=== PATIENT | female | born 1950 | race Caucasian/White ===

== ENCOUNTER → 2016-09-08 | Outpatient (CLI) | payer MEDICAID ==
--- NOTE | 2016-09-09 06:55 | US ---
EXAMINATION TYPE: US st tissue head/neck DATE OF EXAM: 09/08/2016 4:33 PM COMPARISON: EXAMINATION TYPE: US st tissue head/neck DATE OF EXAM: 09/08/2016 4:33 PM COMPARISON: Thyroid ultrasound June 05, 2014 CLINICAL HISTORY: patient has history of thyroid cancer and thyroidectomy. Patient has pain right sub mandibular area. . Technique: Targeted ultrasound of the area of patient's pain right submandibular region is performed. TECHNOLOGIST IMPRESSION: scanned area of concern, where patient has pain, right submandibular area a s well as left submandibular area for comparison. In patient's area of pain there is a chain of nodes , largest measuring 1.3 x 0.6 x 1.1 cm. No other abnormality noted. Scanning of right submandibular region at site of pain shows oval well-circumscribed heterogeneous hy poechoic lesions could reflect reactive lymph nodes. There is loss of normal central fatty hilum or h yperechoic area. Finding could reflect product of inflammatory change given patient's symptoms. Other etiologies are not excluded. If symptoms do not resolve further investigation with contrast neck CT would be advised. No worrisome fluid collection is seen. IMPRESSION: As above.
== END | disposition home or self-care (01) ==
LOC: RADUSWWP 15:58
PROVIDERS: ATTEND Internal Medicine Endocrinology, Diabetes & Metabolism
DX: C73 Malignant neoplasm of thyroid gland (principal); E89.0 Postprocedural hypothyroidism
CPT/HCPCS: 76536

== ENCOUNTER → 2016-09-09 | Outpatient (CLI) | payer MEDICAID ==
[2016-09-09 16:24] VITALS: BP 150/72; PULSE 69; TEMP 97.9; BMI 30.2
--- NOTE | 2016-09-20 19:38 | P.PN ---
Progress Note - Text DATE OF SERVICE: 09/09/2016 CHIEF COMPLAINT: Follow-up sleeve gastrectomy. HISTORY OF PRESENT ILLNESS: Monica Fowler is a 66-year-old female who is status post sleeve gastrectomy on July 2013. She had initially weighed 234 pounds. Her body mass index for a 5-foot, 1 inch frame was 44.2. Today she comes in weighing 162 pounds. She has actually gained 12 pounds over the last 2 years. [place] body weight for her height is 131 pounds. Percent excess weight loss is 70%. Body mass index is reduced from 43.6 down to 30.2. She reports troubles with her skin with chronic infections. Despite topical treatments as well as corn starch and using local therapies, her symptoms continue. She reports that her appetite is unchanged. No reports of active gastroesophageal reflux disease as she continues to take antacids. She is taking Aleve including ibuprofen. She states Tylenol does not work. She also reports chronic infections of panniculitis along the umbilicus. Now she presents for further evaluation and management. She is also concerned for her overall weight gain. Separately, she has history of thyroid cancer, which is now in remission. She follows up with her automotive product specialist regularly. PAST MEDICAL HISTORY: 1. Gastroesophageal reflux disease. 2. Severe postop nausea and vomiting. 3. Morbid obesity. 4. Thyroid goiter. 5. Hyperthyroidism. PAST SURGICAL HISTORY: 1. Hysterectomy. 2. EGD. 3. Colonoscopy. 4. Umbilical hernia repair. 5. Tonsillectomy. 6. Adenoidectomy. 7. Laparoscopic sleeve gastrectomy. 8. Status post thyroidectomy. MEDICATIONS: 1. Vitamin E. 2. Prilosec. 3. Multivitamin. 4. Motrin. 5. Vitamin B12. 6. CoQ10. 7. Vitamin D3. 8. [place]. 9. Levothyroxine. ALLERGIES: ADHESIVE. SOCIAL HISTORY: She is . Lifelong nontobacco user. FAMILY HISTORY: Significant for morbid obesity including diabetes. REVIEW OF SYSTEMS: CONSTITUTIONAL: Highest weight of 234 pounds. Initial body mass index is 44.2. She has gained approximately 12 pounds in 2 years. Percent excess weight loss is down from 80% to 70%. She is only 31 pounds overweight. Body mass index reduced from 43.6 down to 30.2. ENDOCRINE: History of thyroid goiter and thyroid cancer. She is status post resection now in remission after radiation. She is now on Synthroid. GASTROINTESTINAL: Gastroesophageal reflux disease controlled with omeprazole. No reports of constipation or dysphagia. MUSCULOSKELETAL: Reports lower back pain. HEENT: Denies troubles with vision or hearing. RESPIRATORY: No reports of dyspnea on exertion. No reports of obstructive sleep apnea. CARDIAC: No reports of recent chest pain or heart attack. NEURO: No reports of stroke or seizure disorder. PSYCH: No reports of depression or suicidal ideation. HEMATOLOGIC: No reports of DVTs or pulmonary emboli. PHYSICAL EXAM: VITAL SIGNS: 97.9, 69, 150/72; 5 feet 1-1/2 inches, 162 pounds. Body mass index 30.2. ABDOMEN: Moderate-sized pannus over pubis by 7 cm. Hyperemia also noted throughout the skin fold of the pannus. Redundant skin identified. Weight of pannus of at least between 10 and 15 pounds. GENERAL: Well-developed, pleasant female in no acute distress. HEENT: No scleral icterus. Extraocular movements grossly intact. Moist buccal mucosa. NECK: Supple; however, moderate sized thyroid goiter. No discrete thyroid nodules palpated. No lymphadenopathy. CHEST: Nonlabored respirations. Equal bilateral respirations. CARDIOVASCULAR: Regular rate and rhythm. MUSCULOSKELETAL: No clubbing, cyanosis or edema. NEURO: No focal or lateralizing signs. PSYCH: Appropriate affect. Alert and oriented to person, place and time. Labs are pending. Previous labs demonstrate TSH level suppressed at 0.015, PTH level pending. Cholesterol was 60. LDL was elevated at 174. HDL was elevated at 69. Hemoglobin was normal at 13.3. ASSESSMENT: 1. Morbid obesity due to excess calories. 2. Body mass index reduced from 44.2 down to 30.2, obesity. 3. Status post sleeve gastrectomy. 4. History of thyroid cancer in remission. 5. Previous history of thyroid goiter secondary to thyroid cancer, resolved. 6. Secondary hyperparathyroidism. 7. Recurrent panniculitis. 8. Osteoarthritis of the lower back. 9. Osteoarthritis of the joints. 10. Dietary surveillance and counseling. PLAN: 1. She has fair amount of weight gain in the last 2 years. I reviewed with her that the average weight gain following bariatric procedure may be about 25 pounds over the course of 5 years. She is within range however. 2. I have gone over a 2 week high protein low caloric diet of 800 calories to also help re-start her weight loss. 3. On exam, she does have recurrent panniculitis which has been present for 2 to 3 years despite her maintained weight loss and treatment. 4. In the interim, recommend nystatin powder which has been prescribed on her behalf. 5. Recommend bariatric metabolic panel prior to proceeding with surgical intervention. 6. I recommend followup in approximately 3 to 4 weeks and review of treatment of her panniculitis as well as any nutritional deficits.
== END | disposition home or self-care (01) ==
LOC: BARWHC3 14:02
PROVIDERS: ATTEND Surgery Plastic and Reconstructive Surgery
DX: Z48.815 Encounter for surgical aftercare following surgery on the digestive system (principal); Z98.84 Bariatric surgery status; E66.01 Morbid (severe) obesity due to excess calories; Z68.30 Body mass index [BMI] 30.0-30.9, adult; Z85.850 Personal history of malignant neoplasm of thyroid; E21.1 Secondary hyperparathyroidism, not elsewhere classified; M79.3 Panniculitis, unspecified; M47.816 Spondylosis without myelopathy or radiculopathy, lumbar region; M19.90 Unspecified osteoarthritis, unspecified site
CPT/HCPCS: 99211

== ENCOUNTER → 2016-09-14 | Outpatient (CLI) | payer MEDICAID ==
[2016-09-14 11:51] LABS: CH 29.6; CHCM 31.9; HCT 40.1 % (34.0-46.0); HDW 2.21; MCH 30.3 pg (25.0-35.0); MCHC 32.5 g/dL (31.0-37.0); MCV 93.3 fL (80.0-100.0); Mean Platelet Volume 8.9; RBC 4.29 m/uL (3.80-5.40); RDW 12.9 % (11.5-15.5); WBC 8.1 k/uL (3.8-10.6)
[2016-09-14 12:08] LABS: Partial Thromboplastin Time 22.2 sec (22.0-30.0); Prothrombin Time 10.5 sec (9.0-12.0)
[2016-09-14 12:53] LABS: ALT 32 U/L (9-52); AST 21 U/L (14-36); Alkaline Phosphatase 54 U/L (38-126); Anion Gap 13 mmol/L; Blood Urea Nitrogen 23 mg/dL (7-17); Calcium 9.6 mg/dL (8.4-10.2); Carbon Dioxide 26 mmol/L (22-30); Chloride 104 mmol/L (98-107); Cholesterol 246 mg/dL (<200); Glucose 82 mg/dL (74-99); HDL Cholesterol 77 mg/dL (40-60); Iron 78 ug/dL (37-170); Magnesium 1.8 mg/dL (1.6-2.3); Non-African American GFR(MDRD) >60 (>60 ml/min/1.73 sqM); Phosphorous 4.9 mg/dL (2.5-4.5); Potassium 4.2 mmol/L (3.5-5.1); Sodium 143 mmol/L (137-145); Total Bilirubin 0.4 mg/dL (0.2-1.3); Total Protein 7.3 g/dL (6.3-8.2); Triglycerides 81 mg/dL (<150)
[2016-09-14 13:03] LABS: Hemoglobin A1C 5.4 % (4.2-6.1)
[2016-09-14 13:04] LABS: % Iron Saturation 30.8 % (20-50); Prealbumin 26 mg/dL (18-36); Total Iron Binding Capacity 253 ug/dL (265-497)
[2016-09-14 13:57] LABS: Vitamin B12 899 pg/mL (239-931)
== END | disposition home or self-care (01) ==
LOC: LABWHC1 11:09
PROVIDERS: ATTEND Surgery Plastic and Reconstructive Surgery
DX: E21.1 Secondary hyperparathyroidism, not elsewhere classified (principal); E89.1 Postprocedural hypoinsulinemia; D50.8 Other iron deficiency anemias; K90.89 Other intestinal malabsorption; E55.9 Vitamin D deficiency, unspecified; K74.1 Hepatic sclerosis; N19 Unspecified kidney failure; K50.90 Crohn's disease, unspecified, without complications
CPT/HCPCS: 36415; 80053; 80061; 82306; 82525; 82607; 82728; 82746; 83036; 83540; 83550; 83735; 83970; 84100; 84134; 84255; 84425; 84443; 84590; 84630; 85027; 85610; 85730

== ENCOUNTER 2016-12-01 08:22 | Day surgery (SDC) | payer MEDICAID ==
[2016-12-01 09:13] VITALS: BP 131/82; PULSE 62; RESP 14; TEMP 97.6
[2016-12-01] MEDS ORDERED: ALPRAZolam 0.25 MG TAB PO STA (09:19)
--- NOTE | 2016-12-01 14:06 | US ---
Discontinued fine-needle aspiration neck mass HISTORY: Pain, neck mass Correlation to prior ultrasound thyroid 08 September 2016 Real-time ultrasound scanning shows benign-appearing lymph nodes. No suspicious mass evident. IMPRESSION: Following discussion with the patient, the patient has elected for no further interventio n to be performed, no fine-needle aspiration of this time. Follow-up as indicated clinically.
== END 2016-12-01 10:45 | disposition home or self-care (01) ==
LOC: RADPROMAIN 08:22
PROVIDERS: ATTEND Otolaryngology
DX: R22.1 Localized swelling, mass and lump, neck (principal); Z53.8 Procedure and treatment not carried out for other reasons; Z85.850 Personal history of malignant neoplasm of thyroid; E89.0 Postprocedural hypothyroidism
CPT/HCPCS: 76536

== ENCOUNTER → 2017-01-20 | Outpatient (CLI) | payer MEDICAID ==
[2017-01-20 13:40] VITALS: BP 137/94; PULSE 74; TEMP 98.3; BMI 30.1
--- NOTE | 2017-02-19 12:47 | P.PN ---
Progress Note - Text DATE OF SERVICE: 01/20/2017 CHIEF COMPLAINT: History of sleeve gastrectomy. HISTORY OF PRESENT ILLNESS: Monica Fowler is a 66-year-old female who is status post sleeve gastrectomy in July 2013. She is over 3+ years out. She comes in particularly with concerns of chronic panniculitis. At her height of 5 foot, 1-1/2 inch frame, her ideal body weight is 131 pounds. Her heighest weight was 234 pounds. Today she comes in weight 163 pounds. She has maintained a 72 pound weight loss. Percentage weight loss is 70%. Body mass index reduced from 43.6 down to 30.1. Total BMI point index of 13.5. She is still 31 pounds overweight. Separately she is continuing to follow up with regards to her history of left thyroid cancer. Her personal goal is to at least get down to 140 pounds. Now she presents for further evaluation and management. She still is using nystatin powder for her chronic panniculitis. PAST MEDICAL HISTORY: 1. Gastroesophageal reflux disease. 2. Severe postop nausea and vomiting. 3. Morbid obesity. 4. Thyroid goiter. 5. Hyperthyroidism. 6. Chronic panniculitis 7. History of thyroid cancer. PAST SURGICAL HISTORY: 1. Hysterectomy. 2. EGD. 3. Colonoscopy. 4. Umbilical hernia repair. 5. Tonsillectomy. 6. Adenoidectomy. 7. Laparoscopic sleeve gastrectomy. 8. Status post total thyroidectomy. MEDICATIONS: 1. Vitamin E. 2. Omeprazole. 3. Fish oil. 4. Multivitamin. 5. Synthroid. 6. Vitamin B12. 7. Co-Q 10. 8. Vitamin D. 9. Calcium citrate. ALLERGIES: ADHESIVE. SOCIAL HISTORY: She is . Lifelong nontobacco user. FAMILY HISTORY: Significant for morbid obesity including diabetes. REVIEW OF SYSTEMS: CONSTITUTIONAL: [place] body weight of 131 pounds. Highest weight 234 pounds. Maintain weight loss 72%. Percentage of weight loss 70%. Body mass index reduced from 43.6 down to 30.1. ENDOCRINE: History of thyroid cancer, status post total thyroidectomy. She is still pending evaluation and surveillance for thyroid cancer. MUSCULOSKELETAL: She is reporting lower back pain secondary to her pannus. GASTROINTESTINAL: Gastroesophageal reflux disease controlled with omeprazole. No reports of constipation or dysphagia. HEENT: Denies troubles with vision or hearing. RESPIRATORY: No reports of dyspnea on exertion. No reports of obstructive sleep apnea. CARDIAC: No reports of recent chest pain or heart attack. NEURO: No reports of stroke or seizure disorder. PSYCH: No reports of depression or suicidal ideation. HEMATOLOGIC: No reports of DVTs or pulmonary emboli. PHYSICAL EXAM: VITALS: 98.3, 74, 12, 137/94, 5 foot, 1-/2, 163 pounds, body mass index of 30.1. ABDOMEN: Pannus extensive over the pubic by at least 6 cm with hyperpigmentation consistent with chronic panniculitis. Weight of pannus is between 5 to 7 pounds. GENERAL: Well-developed, pleasant female in no acute distress. HEENT: No scleral icterus. Extraocular movements grossly intact. Moist buccal mucosa. NECK: Supple; however, moderate sized thyroid goiter. No discrete thyroid nodules palpated. No lymphadenopathy. CHEST: Nonlabored respirations. Equal bilateral respirations. CARDIOVASCULAR: Regular rate and rhythm. MUSCULOSKELETAL: No clubbing, cyanosis or edema. NEURO: No focal or lateralizing signs. PSYCH: Appropriate affect. Alert and oriented to person, place and time. LABS: Previous metabolic panel is reviewed demonstrating hemoglobin normal at 13.0. BUN is elevated at 23. Phos is elevated at 4.9. Total iron binding capacity was low at 253. Ferritin is elevated at 275. Cholesterol is elevated at 246. LDL elevated at 153, HDL elevated at 77. Thyroid stimulant hormone is depressed at 0.05. STUDIES: Ultrasound of the neck was also reviewed consistent with no suspicious lesion or mass found along the neck. ASSESSMENT: 1. Morbid obesity due to excess calories. 2. Body mass index reduced from 43.6 down to 38.1. 3. Status post sleeve gastrectomy. 4. History of thyroid cancer in remission. 5. Previous history of thyroid goiter secondary to thyroid cancer, resolved. 6. Secondary hyperparathyroidism. 7. Recurrent panniculitis. 8. Osteoarthritis of the lower back. 9. Osteoarthritis of the joints. 10. Dietary surveillance and counseling. 11. Gastroesophageal reflux disease. 12. Hyperlipidemia. PLAN: 1. She is seeking a panniculectomy and she is approximately 20 pounds away from her goal. I would advise a high protein, low carbohydrate diet to help with her goals. 2. Nystatin powder was prescribed on her behalf for her chronic panniculitis. 3. In interim, recommended abdominal wall exercises to facilitate her overall recovery for panniculectomy. 4. As she is a longstanding bariatric patient and has done fairly well with her weight loss, she is ideal consideration for panniculectomy. Benefits and risks of this procedure including bleeding and infection, flap failure and need for additional surgery including chronic pain and postop seroma were reviewed in detail. 5. She will likely need inpatient hospitalization at least overnight. 6. Deep venous thrombosis prophylaxis. 7. Antibiotic prophylaxis. 8. She has history of postop nausea and vomiting where minimized exposure to narcotics is advised. 9. Recommend followup after completion of her goal weight loss.
== END | disposition home or self-care (01) ==
LOC: BARWHC3 13:13
PROVIDERS: ATTEND Surgery Plastic and Reconstructive Surgery
DX: Z48.815 Encounter for surgical aftercare following surgery on the digestive system (principal); E66.01 Morbid (severe) obesity due to excess calories; M79.3 Panniculitis, unspecified; M47.816 Spondylosis without myelopathy or radiculopathy, lumbar region; M19.90 Unspecified osteoarthritis, unspecified site; K21.9 Gastro-esophageal reflux disease without esophagitis; E78.5 Hyperlipidemia, unspecified; Z71.3 Dietary counseling and surveillance; Z68.38 Body mass index [BMI] 38.0-38.9, adult; Z98.84 Bariatric surgery status; Z85.850 Personal history of malignant neoplasm of thyroid; Z79.899 Other long term (current) drug therapy
CPT/HCPCS: 99211

== ENCOUNTER → 2017-04-07 | Outpatient (CLI) | payer MEDICAID ==
--- NOTE | 2017-05-16 20:32 | P.PN ---
Progress Note - Text DATE OF SERVICE: 04/07/2017 CHIEF COMPLAINT: History of sleeve gastrectomy. HISTORY OF PRESENT ILLNESS: Monica Fowler is a 66-year-old female who is status post sleeve gastrectomy in July 2013. She is almost 4 years out. She has chronic panniculitis despite prescription therapy and powders. At her height of 5 foot, 1-1/2 inch frame, her ideal body weight is 131 pounds. Her highest weight was 234 pounds. Today she comes in weight 160 pounds. She has maintained a 74 pound weight loss. Excess percent weight loss is 72%. Body mass index reduced from 43.6 down to 29.7. Total BMI point index of 13.8. She is29 pounds overweight. She presents today with stable weight loss. Despite chronic treatment including prescription powders, she seeking a panniculectomy. In the interim, she is going to the at least once a week. PAST MEDICAL HISTORY: 1. Gastroesophageal reflux disease. 2. Severe postop nausea and vomiting. 3. Morbid obesity, now resolved. 4. Chronic panniculitis 5. Hyperthyroidism. 6. Personal history of thyroid cancer in remission. PAST SURGICAL HISTORY: 1. Hysterectomy. 2. EGD. 3. Colonoscopy. 4. Umbilical hernia repair. 5. Tonsillectomy. 6. Adenoidectomy. 7. Laparoscopic sleeve gastrectomy. 8. Status post total thyroidectomy. MEDICATIONS: 1. Vitamin E. 2. Omeprazole. 3. Fish oil. 4. Multivitamin. 5. Synthroid. 6. Vitamin B12. 7. Co-Q 10. 8. Vitamin D. 9. Calcium citrate. ALLERGIES: ADHESIVE. SOCIAL HISTORY: She is . Lifelong nontobacco user. FAMILY HISTORY: Significant for morbid obesity including diabetes. REVIEW OF SYSTEMS: CONSTITUTIONAL: [place] body weight of 131 pounds. Highest weight 234 pounds. Maintain weight loss 74 pounds. Excess percent weight loss 72%. Body mass index reduced from 43.6 down to 29.7 ENDOCRINE: History of thyroid cancer, status post total thyroidectomy. No blood sugar glucose intolerance. MUSCULOSKELETAL: She is reporting lower back pain secondary to her pannus. GASTROINTESTINAL: Gastroesophageal reflux disease controlled with omeprazole. No reports of constipation or dysphagia. HEENT: Denies troubles with vision or hearing. RESPIRATORY: No reports of dyspnea on exertion. No reports of obstructive sleep apnea. CARDIAC: No reports of recent chest pain or heart attack. NEURO: No reports of stroke or seizure disorder. PSYCH: No reports of depression or suicidal ideation. HEMATOLOGIC: No reports of DVTs or pulmonary emboli. SKIN: Has panniculitis. No history of skin cancer. BREAST: No recent breast cancer. No palpable lumps. PHYSICAL EXAM: VITALS: 5 foot, 1-1/2, 160 pounds, body mass index of 29.7. Vital Signs Temp 98.1 F 04/07/17 14:15 Pulse 80 04/07/17 14:15 Resp 16 04/07/17 14:15 BP 144/89 04/07/17 14:15 Pulse Ox ABDOMEN: Soft, nontender, nondistended. Pannus extends over the pubis by 6 cm with hyperpigmentation consistent with chronic panniculitis. Weight of pannus between 5 to 7 pounds. GENERAL: Well developed and in no acute distress. Pleasant. HEENT: No sclera icterus. Extraocular movements grossly intact. Moist buccal mucosa. Head is atraumatic, normocephalic. Hears conversational speech. No nasal drainage. NECK: Supple without lymphadenopathy. No JV distention. CHEST: Non-labored respirations and equal bilateral excursions. CARDIOVASCULAR: Regular rate and rhythm. Palpable 2+ radial pulses. MUSCULOSKELETAL: No clubbing, cyanosis or edema. NEUROLOGIC: No focal or lateralizing signs. PSYCH: Appropriate affect. Alert and oriented to person, place and time. BREAST: There are no palpable lesions along the bilateral breasts. No axillary adenopathy. SKIN: Good skin turgor. Well perfused. ASSESSMENT: 1. Morbid obesity due to excess calories. 2. Body mass index reduced from 43.6 down to 29.7. 3. Status post sleeve gastrectomy. 4. History of thyroid cancer in remission. 5. Recurrent panniculitis. 6. Osteoarthritis of the lower back. 7. Gastroesophageal reflux disease. PLAN: 1. As she has severe panniculitis, recommend a panniculectomy. 2. Inpatient hospitalization overnight recommended for pain control. 3. Recommend 2 week high protein low calorie diet preoperatively for maximal wound healing. 4. Benefits and risks of panniculectomy including pain, bleeding, infection, postoperative seromas, need for BENIGNO drains, flap failure were described in detail. 5. Recommend abdominal binder anticipated for at least 4-6 weeks. 6. Postoperative, including no lifting over 4 pounds in 4-6 weeks was described. 7. DVT prophylaxis. 8. Antibiotic prophylaxis.
== END | disposition home or self-care (01) ==
CPT/HCPCS: 99211

== ENCOUNTER → 2017-06-30 | Outpatient (CLI) | payer MEDICAID ==
[2017-06-30 16:22] LABS: EKG ALREADY PERFORMED
[2017-06-30 16:27] LABS: Basophils % (A) 1 %; CH 29.5; CHCM 31.2; Eosinophils # (A) 0.1 k/uL (0-0.7); Eosinophils % (A) 2 %; HCT 38.9 % (34.0-46.0); HDW 2.06; HGB 12.4 gm/dL (11.4-16.0); Luc # (Auto) 0.17; Luc % (Auto) 2; Lymphocytes % (A) 23 %; MCH 30.3 pg (25.0-35.0); MCHC 31.9 g/dL (31.0-37.0); Mean Platelet Volume 7.7; Monocytes # (A) 0.5 k/uL (0-1.0); Monocytes % (A) 6 %; Neutrophils # (A) 5.8 k/uL (1.3-7.7); Neutrophils % (A) 68 %; RDW 13.8 % (11.5-15.5); WBC 8.6 k/uL (3.8-10.6); WBC (Perox) 9.03
[2017-06-30 16:37] LABS: ALT 32 U/L (9-52); AST 24 U/L (14-36); Alkaline Phosphatase 67 U/L (38-126); Anion Gap 7 mmol/L; Blood Urea Nitrogen 23 mg/dL (7-17); Calcium 9.1 mg/dL (8.4-10.2); Carbon Dioxide 27 mmol/L (22-30); Chloride 106 mmol/L (98-107); Glucose 89 mg/dL (74-99); Non-African American GFR(MDRD) >60 (>60 ml/min/1.73 sqM); Potassium 4.5 mmol/L (3.5-5.1); Sodium 140 mmol/L (137-145); Total Bilirubin 0.3 mg/dL (0.2-1.3)
== END | disposition home or self-care (01) ==
LOC: LABPAT 15:21
PROVIDERS: ATTEND Surgery Plastic and Reconstructive Surgery
DX: Z01.812 Encounter for preprocedural laboratory examination (principal)
CPT/HCPCS: 80053; 85025; 93005

== ENCOUNTER 2017-07-12 07:30 | Inpatient (IN) | payer MEDICAID ==
[2017-07-02 09:37] VITALS: BMI 29.2
--- NOTE | 2017-07-12 04:15 | P.GSHP ---
History of Present Illness H&P Date: 07/12/17 CHIEF COMPLAINT: Panniculitis. HISTORY OF PRESENT ILLNESS: Monica Fowler is a 66-year-old female who is status post sleeve gastrectomy in July 2013. She is almost 4 years out. She has chronic panniculitis despite prescription therapy and powders. At her height of 5 foot, 1-1/2 inch frame, her ideal body weight is 131 pounds. Her highest weight was 234 pounds. Today she comes in weight 160 pounds. She has maintained a 74 pound weight loss. Excess percent weight loss is 72%. Body mass index reduced from 43.6 down to 29.7. Total BMI point index of 13.8. She is 29 pounds overweight. She presents today with stable weight loss. Despite chronic treatment including prescription powders, she seeking a panniculectomy. PAST MEDICAL HISTORY: 1. Gastroesophageal reflux disease. 2. Severe postop nausea and vomiting. 3. Morbid obesity, now resolved. 4. Chronic panniculitis 5. Hyperthyroidism. 6. Personal history of thyroid cancer in remission. PAST SURGICAL HISTORY: 1. Hysterectomy. 2. EGD. 3. Colonoscopy. 4. Umbilical hernia repair. 5. Tonsillectomy. 6. Adenoidectomy. 7. Laparoscopic sleeve gastrectomy. 8. Status post total thyroidectomy. MEDICATIONS: 1. Vitamin E. 2. Omeprazole. 3. Fish oil. 4. Multivitamin. 5. Synthroid. 6. Vitamin B12. 7. Co-Q 10. 8. Vitamin D. 9. Calcium citrate. ALLERGIES: ADHESIVE. SOCIAL HISTORY: She is . Lifelong nontobacco user. FAMILY HISTORY: Significant for morbid obesity including diabetes. REVIEW OF SYSTEMS: CONSTITUTIONAL: [place] body weight of 131 pounds. Highest weight 234 pounds. Maintain weight loss 74 pounds. Excess percent weight loss 72%. Body mass index reduced from 43.6 down to 29.7 ENDOCRINE: History of thyroid cancer, status post total thyroidectomy. No blood sugar glucose intolerance. MUSCULOSKELETAL: She is reporting lower back pain secondary to her pannus. GASTROINTESTINAL: Gastroesophageal reflux disease controlled with omeprazole. No reports of constipation or dysphagia. HEENT: Denies troubles with vision or hearing. RESPIRATORY: No reports of dyspnea on exertion. No reports of obstructive sleep apnea. CARDIAC: No reports of recent chest pain or heart attack. NEURO: No reports of stroke or seizure disorder. PSYCH: No reports of depression or suicidal ideation. HEMATOLOGIC: No reports of DVTs or pulmonary emboli. SKIN: Has panniculitis. No history of skin cancer. BREAST: No recent breast cancer. No palpable lumps. PHYSICAL EXAM: VITALS: 5 foot, -08/24, 160 pounds, body mass index of 29.7. ABDOMEN: Soft, nontender, nondistended. Pannus extends over the pubis by 6 cm with hyperpigmentation consistent with chronic panniculitis. Weight of pannus between 5 to 7 pounds. GENERAL: Well developed and in no acute distress. Pleasant. HEENT: No sclera icterus. Extraocular movements grossly intact. Moist buccal mucosa. Head is atraumatic, normocephalic. Hears conversational speech. No nasal drainage. NECK: Supple without lymphadenopathy. No JV distention. CHEST: Non-labored respirations and equal bilateral excursions. CARDIOVASCULAR: Regular rate and rhythm. Palpable 2+ radial pulses. MUSCULOSKELETAL: No clubbing, cyanosis or edema. NEUROLOGIC: No focal or lateralizing signs. PSYCH: Appropriate affect. Alert and oriented to person, place and time. BREAST: There are no palpable lesions along the bilateral breasts. No axillary adenopathy. SKIN: Good skin turgor. Well perfused. ASSESSMENT: 1. Morbid obesity due to excess calories. 2. Body mass index reduced from 43.6 down to 29.7. 3. Status post sleeve gastrectomy. 4. History of thyroid cancer in remission. 5. Recurrent panniculitis. 6. Osteoarthritis of the lower back. 7. Gastroesophageal reflux disease. PLAN: 1. As she has severe panniculitis, recommend a panniculectomy. 2. Inpatient hospitalization overnight recommended for pain control. 3. Recommend 2 week high protein low calorie diet preoperatively for maximal wound healing. 4. Benefits and risks of panniculectomy including pain, bleeding, infection, postoperative seromas, need for BENIGNO drains, flap failure were described in detail. 5. Recommend abdominal binder anticipated for at least 4-6 weeks. 6. Postoperative, including no lifting over 4 pounds in 4-6 weeks was described. 7. DVT prophylaxis. 8. Antibiotic prophylaxis. Past Medical History Past Medical History: Cancer, GERD/Reflux, Thyroid Disorder Additional Past Medical History / Comment(s): STATES WAS TOLD HAD SLIGHTLY ENLARGED HEART,HEART MURMUR, HX THYROID NODULES . thyroid CA, History of Any Multi-Drug Resistant Organisms: None Reported Past Surgical History: Adenoidectomy, Bariatric Surgery, Hernia Repair, Hysterectomy, Tonsillectomy Additional Past Surgical History / Comment(s): UMBILICAL HERNIA REPAIR A CHILD, HYSTERECTOMY, GASTRIC SLEEVE JUL 2013.thyroidectomy Past Anesthesia/Blood Transfusion Reactions: Postoperative Nausea & Vomiting ( PONV) Additional Past Anesthesia/Blood Transfusion Reaction / Comment(s): MOTHER AND DAUGHTER ALSO HAVE PONV Smoking Status: Former smoker - Past Family History Sister(s) Family Medical History: GERD/Reflux Father Family Medical History: Cancer Additional Family Medical History / Comment(s): BLADDER CANCER Medications and Allergies Home Medications Medication Instructions Recorded Confirmed Type Vitamin E (Dl,Tocopheryl Acet) 400 unit PO DAILY 01/05/14 07/02/17 History [Vitamin E] Co Q-10 60mg 1 tab PO DAILY 12/24/14 07/02/17 History Cyanocobalamin [Vitamin B-12] 1,000 mcg PO DAILY 12/24/14 07/02/17 History Multivitamins, Thera [Multivitamin 1 each PO DAILY 12/24/14 07/02/17 History (formulary)] Omeprazole [PriLOSEC] 40 mg PO HS 12/24/14 07/02/17 History Cholecalciferol [Vitamin D3] 4,000 unit PO DAILY@1200 tab 12/26/14 07/02/17 Rx Levothyroxine Sodium [Synthroid] 175 mcg PO DAILY 09/09/16 07/02/17 History [place]-3 Fatty Acids/Fish Oil [Fish 1,000 mg PO DAILY 11/20/16 07/02/17 History Oil 1,000 mg Softgel] Calcium Carb-Vit D 500Mg-200Un 1,000 mg PO BID 07/02/17 07/02/17 History [Oscal 500+D] Magnesium 400 mg PO DAILY 07/02/17 07/02/17 History Allergies Allergy/AdvReac Type Severity Reaction Status Date / Time adhesive AdvReac Unknown RED Verified 07/02/17 09:29 IRRITATED SKIN
[~2017-07-12 07:30] MED LIST: ACETAMINOPHEN IV (For NPO) 1,000 MG in EMPTY BAG 1 BAG IVPB ONE; DEXAMETHASONE SOD PHOSPHATE 10 MG/ML 1 ML VIAL IV ONE; MIDAZOLAM 2 MG/2 ML VIAL IV PRN; ONDANSETRON 4 MG/2 ML VIAL IVP ONE; SCOPOLAMINE 1.5MG/72HR PATCH TRANSDERM ONE; ceFAZolin IN SWFI 2 GM/20 ML SYRINGE IVP ONE
[2017-07-12] MEDS ORDERED: LIDOCAINE 1% 20 ML VIAL (10MG/ML) FOR IV START INTRADERMA ONE (10:51)
[2017-07-12] MEDS: LACTATED RINGERS 1,000 ML IV SCH ×2 (10:51→15:44)
[2017-07-12] MEDS ORDERED: MIDAZOLAM 2 MG/2 ML VIAL ONE (15:47)
[2017-07-12] MEDS ORDERED: SUCCINYLCHOLINE CHLORIDE 100 MG/5 ML SYR IV ONE (15:47)
[2017-07-12] MEDS ORDERED: ROCURONIUM BROMIDE 10 MG/ML 10 ML VIAL IV ONE (15:47)
[2017-07-12] MEDS ORDERED: LIDOCAINE 1% INJ 10MG/ML (20 ML MDV) ONE (15:47)
[2017-07-12] MEDS ORDERED: fentaNYL (PF) 50 MCG/ML 2 ML AMP ONE (15:47)
[2017-07-12] MEDS ORDERED: PROPOFOL 10 MG/ML 20 ML VIAL IV ONE (15:47)
[2017-07-12] MEDS ORDERED: ePHEDrine SULFATE/0.9% NACL/PF 50 MG/5 ML SYRINGE IV ONE (15:47)
[2017-07-12] MEDS ORDERED: HYDROmorphone 1 MG/ML 1 ML SYRINGE IVP PRN (18:17)
[2017-07-12] MEDS ORDERED: NALOXONE 0.4 MG/ML 1 ML VIAL IV PRN (18:17)
[2017-07-12] MEDS ORDERED: METOCLOPRAMIDE 5 MG/ML 2 ML VIAL IVP PRN (18:17)
[2017-07-12] MEDS ORDERED: TRIMETHOBENZAMIDE 100 MG/ML 2 ML VIAL IM PRN (18:17)
--- NOTE | 2017-07-12 18:17 | P.OP ---
Date of Procedure: 07/12/17 Description of Procedure: SURGEON: KIRT PINON MD SENIOR SOFTWARE DEVELOPMENT ENGINEER: 1. JAYLEN OLGUIN. PREOPERATIVE DIAGNOSES: 1. Morbid obesity due to excess calories. 2. Body mass index reduced from 43.6 down to 29.7. 3. Status post sleeve gastrectomy. 4. History of thyroid cancer in remission. 5. Recurrent panniculitis. 6. Osteoarthritis of the lower back. 7. Gastroesophageal reflux disease. POSTOPERATIVE DIAGNOSES: 1. Morbid obesity due to excess calories. 2. Body mass index reduced from 43.6 down to 29.7. 3. Status post sleeve gastrectomy. 4. History of thyroid cancer in remission. 5. Recurrent panniculitis. 6. Osteoarthritis of the lower back. 7. Gastroesophageal reflux disease. 8. Ventral hernia, 13 x 24 cm, initial and reducible. OPERATION: 1. Panniculectomy, 7.6 pounds. 2. Primary repair of ventral hernia 8 x 23 cm without mesh. ANESTHESIA: General ESTIMATED BLOOD LOSS: 250 mL SPECIMENS REMOVED: Pannus 7.6 pounds. COMPLICATIONS: None. CONDITION: Stable. DRAINS: Two #19 Micah drains below abdominal flap extending through the pubis. OPERATIVE FINDINGS: 1. Pannus weighing 7.6 pounds, excised. 2. Abdominal ventral hernia of 8 x 23 cm along the midline repaired primarily using fascial imbrication. INDICATIONS: avani Fowler is a 66-year-old female who is status post sleeve gastrectomy in July 2013. She is almost 4 years out. She has chronic panniculitis despite prescription therapy and powders. At her height of 5 foot, 1-1/2 inch frame, her ideal body weight is 131 pounds. Her highest weight was 234 pounds. Today she comes in weight 160 pounds. She has maintained a 74 pound weight loss. Excess percent weight loss is 72%. Body mass index reduced from 43.6 down to 29.7. Total BMI point index of 13.8. She is 29 pounds overweight. She presents today with stable weight loss. Despite chronic treatment including prescription powders, she seeking a panniculectomy. Benefits and risks of the procedure including bleeding, infection, cosmetic deformity, abdominal seromas, placement of drains, risk of flap failure were described at length. Informed consent was obtained. DESCRIPTION: In the preanesthesia care unit the patient was marked with an indelible marker. She had also been given heparin subcutaneously. The patient was brought into the operating room and laid in supine position. After general induction, a Giles catheter was placed. The abdomen was then prepped and draped in standard sterile fashion using ChloraPrep. The skin was prepped as far laterally to the back, inferiorly to the upper thighs and superiorly to above the bilateral breasts. A timeout protocol was confirmed with the surgical team regarding patient's name , procedure to be performed, including preoperative medications. She had received Ancef 2 grams IV antibiotics. Once the time-out protocol was confirmed with the surgical team, the patient was re-marked with indelible marker whereby the midline of the xiphoid to the mons pubis was marked. The anterior/superior iliac spine along the bilateral hips was also marked. At 8 cm above the pubis commissure a transverse incision was made for the inferior portion of the flap. Using a #10 blade, the incision was taken from the midline laterally to above the anterior/superior iliac spine, initially on the left side of the patient and then on the right side of the patient. Electro-Bovie cautery was used to control for hemostasis. The dissection was taken down to the level of the fascia. Landmarks used were the xiphoid process as well as the bilateral costal margins for the superior margin. Care was taken to avoid any creation of dog ears during the dissection. Once hemostasis was checked, a large ventral hernia fascial defect of 8 x 23 cm was identified unrelated to her bariatric procedure. During this dissection, the umbilicus was truncated at its fascial insertion. The umbilicus fascial excision was oversewn using 0-Vicryl. Starting from the xiphoid process, fascial imbrication was performed using #2 Ethibond. Multiple facial imbrications at least 2 layers were performed. The ventral hernia defect was completely repaired and closed. Hemostasis was once again checked with electro-Bovie cautery and all defects were addressed. Attention was now brought to closure of the flap. Using stainless steel skin deng, the midline was once again marked of the upper flap as well as the pubic commissure. The patient was placed in a flexed position of approximately 30 degrees at the hips. The pannus was extended inferiorly to the feet. The upper flap was created once the excess skin was excised. Again care was taken to avoid any dog ears along the lateral aspect of the incisions. Once excised, the pannus was weighed at 7.6 pounds. The upper and lower flaps were reapproximated at the midline and then laterally to the skin with skin deng. Once reapproximated, the skin was closed in layers using 0 Vicryl for the superficial fascial system followed by running 3- 0 Monocryl for the deep dermis in a running subcuticular fashion. Prior to skin closure, two round #19 Micah drains were placed underneath the flap and brought out just inferior to the incision along the pubis. Drain stitch using 2-0 nylon was placed. Once the incision was closed, bulb suction was attached. Hemostasis was checked. At the end of the procedure, the needle, sponge and instrument count was verified correct. The skin was cleansed with hydrogen peroxide. Dermabond tape including adhesive was placed along the length of the incision. Optifoam long silver dressing was also placed over the incision. Small optifoam dressing was placed over the BENIGNO sites. The patient was then transferred to a hospital bed in a beach chair position. An abdominal binder was placed and marked. The patient was taken to the postanesthesia care unit in stable condition, awake and extubated. Total time for procedure from skin to skin was 103 minutes. The intraoperative findings were discussed with her over the phone who was pleased with the level of care.
[2017-07-12] MEDS: HYDROmorphone 0.5 MG/0.5 ML SYRINGE IVP PRN ×2 (18:38→18:43)
[2017-07-12] MEDS ORDERED: ACETAMINOPHEN IV (For NPO) 1,000 MG in EMPTY BAG 1 BAG IVPB ONE (19:30)
--- NOTE | 2017-07-12 20:24 | P.PN ---
Progress Note - Text Progress Note Date: 07/12/17 Patient seen and evaluated. Pain is well-controlled. Remove Giles catheter in the morning. Potential discharge home tomorrow.
[2017-07-12] MEDS: PANTOPRAZOLE 40 MG TABLET PO SCH (21:11)
[2017-07-12] MEDS: DOCUSATE 100 MG CAP PO SCH (21:11)
[2017-07-12] MEDS: HYDROcodone/APAP 5-325MG 1 EACH TAB PO PRN (21:21)
[2017-07-12 21:22] VITALS: RESP 16
[2017-07-12] MEDS: ceFAZolin IN SWFI 2 GM/20 ML SYRINGE IVP SCH (23:56)
[2017-07-13] MEDS: D5-0.45% NACL WITH KCL 20MEQ/L 1,000 ML IV SCH ×4 (00:25→21:14)
[2017-07-13] MEDS: HYDROcodone/APAP 5-325MG 1 EACH TAB PO PRN (04:58)
[2017-07-13] MEDS: LEVOTHYROXINE 100 MCG TAB PO SCH (05:31)
[2017-07-13] MEDS: LEVOTHYROXINE 75 MCG TAB PO SCH (05:31)
[2017-07-13 07:52] LABS: Basophils % (A) 0 %; CHCM 31.8; Eosinophils # (A) 0.1 k/uL (0-0.7); Eosinophils % (A) 1 %; HCT 36.8 % (34.0-46.0); HDW 2.01; HGB 11.6 gm/dL (11.4-16.0); Luc % (Auto) 1; Lymphocytes # (A) 1.6 k/uL (1.0-4.8); Lymphocytes % (A) 16 %; MCH 29.9 pg (25.0-35.0); MCHC 31.6 g/dL (31.0-37.0); MCV 94.7 fL (80.0-100.0); Mean Platelet Volume 7.7; Monocytes # (A) 0.8 k/uL (0-1.0); Monocytes % (A) 8 %; Neutrophils # (A) 7.3 k/uL (1.3-7.7); Neutrophils % (A) 74 %; RBC 3.89 m/uL (3.80-5.40); RDW 13.5 % (11.5-15.5); WBC 9.8 k/uL (3.8-10.6); WBC (Perox) 10.31
[2017-07-13] MEDS: ENOXAPARIN 40 MG/0.4 ML SYRINGE SQ SCH (08:16)
[2017-07-13] MEDS: DOCUSATE 100 MG CAP PO SCH ×2 (08:16→21:09)
[2017-07-13] MEDS: ONDANSETRON 4 MG/2 ML VIAL IVP PRN ×2 (08:34→17:07)
[2017-07-13] MEDS: ceFAZolin IN SWFI 2 GM/20 ML SYRINGE IVP SCH (12:51)
--- NOTE | 2017-07-13 12:56 | P.PN ---
<Mattie Felizsammi Schmidt - Last Filed: 07/14/17 11:37> Subjective Progress Note Date: 07/13/17 66-year-old female seen and examined at bedside. Patient currently is sitting up in a chair. Patient reports having muscle cramping. Patient states she's tired with a nausea sensation. Abdominal binder in place. Patient states is urinating with no difficulty. Patient is postop July 12 Panniculectomy, 7.6 pounds. Removed, repair ventral hernia without mesh Objective - Vital Signs Vital signs: Vital Signs Temp 98.4 F 07/13/17 07:00 Pulse 83 07/13/17 08:00 Resp 16 07/13/17 08:00 BP 102/66 07/13/17 07:00 Pulse Ox 96 07/13/17 07:00 Intake & Output 07/12/17 07/13/17 07/13/17 18:59 06:59 18:59 Intake Total 2100 2130 Output Total 500 790 350 Balance 1600 1340 -350 Weight 72.575 kg 72.575 kg Intake: IV 2100 Intake, IV Titration 1650 Amount ACETAMINOPHEN IV (For NPO 100 ) 1,000 mg In Empty Bag 1 bag @ 400 mls/hr IVPB ONCE ONE Rx#:[id number] D5-0.45% NaCl with KCl 750 20Meq/l 1,000 ml @ 125 mls/hr IV .Q8H [facility] Rx#: [id number] Lactated Ringers 1,000 ml 800 @ 20 mls/hr IV .Q24H [facility] Rx#:[id number] Oral 480 Output: Drainage 90 Abdomen 90 Urine 250 700 350 Uretheral (Giles) 700 350 Estimated Blood Loss 250 Other: Voiding Method Indwelling Catheter Toilet # Voids 2 - Exam Physical exam Pleasant 66-year-old female sitting up in a chair reports having abdominal cramping Lungs adequate air movement bilaterally on room air Heart S1-S2 audible regular Abdomen abdominal binder in place [address] moderate amount of bloody drainage noted on distended surgical tenderness appropriate Extremities Venodyne's on to the bilateral lower extremities no edema - Labs CBC & Chem 7: 07/13/17 07:00 Assessment and Plan Assessment: Impression Morbid obesity due to excessive calories Status post sleeve gastrectomy BMI reduced from 43 down to 29 Osteoarthritis of the lower back Recurrent panniculitis. Ventral hernia, 13 x 24 cm, initial and reducible. Esophageal reflux disease Panniculectomy, 7.6 pounds With primary repair of ventral hernia without mesh done on July 12 Plan Continue postop surgical care Do not remove abdominal binder except by surgeon Pain control DVT and GI prophylaxis PT eval The above impression and plan of care have been discussed and directed by signing physician. Sharonda Feliz nurse practitioner acting as scribe for signing physician. <Virgen Stewart - Last Filed: 07/17/17 13:13> Objective - Vital Signs Vital signs: Vital Signs Temp 98.0 F 07/14/17 07:00 Pulse 68 07/14/17 07:00 Resp 16 07/14/17 07:00 BP 151/84 07/14/17 07:00 Pulse Ox 100 07/14/17 07:00 - Labs CBC & Chem 7: 07/13/17 07:00
[2017-07-13] MEDS: traMADol 50 MG TAB PO PRN ×2 (12:57→18:58)
[2017-07-13] MEDS: PANTOPRAZOLE 40 MG TABLET PO SCH (21:09)
[2017-07-14] MEDS: D5-0.45% NACL WITH KCL 20MEQ/L 1,000 ML IV SCH ×2 (07:23→08:19)
[2017-07-14] MEDS: LACTATED RINGERS 1,000 ML IV SCH (07:23)
[2017-07-14] MEDS: LEVOTHYROXINE 100 MCG TAB PO SCH (07:57)
[2017-07-14 08:13] VITALS: BP 151/84; PULSE 68; TEMP 98
[2017-07-14] MEDS: LEVOTHYROXINE 75 MCG TAB PO SCH (08:19)
[2017-07-14] MEDS: DOCUSATE 100 MG CAP PO SCH (08:19)
[2017-07-14] MEDS: ENOXAPARIN 40 MG/0.4 ML SYRINGE SQ SCH (08:19)
[2017-07-14] MEDS: traMADol 50 MG TAB PO PRN (11:17)
--- NOTE | 2017-07-14 11:38 | P.DS ---
Providers Date of admission: 07/12/17 10:24 Expected date of discharge: 07/14/17 Attending physician: Virgen Stewart Primary care physician: [facility] Course: 66-year-old female presented on the left basis to undergo Panniculectomy, 7.6 pounds Removed,with repair ventral hernia without mesh for recurrent panniculitis. Patient is status post sleeve gastrectomy BMI reduced from 43 down to 29. Postoperatively events. Patient was up ambulatory on the unit pain medication effective for pain control abdominal binder in place surgical dressing dry BENIGNO drains in place. Patient is felt to be hemodynamically stable and appropriate proceed with a discharge to home Impression Morbid obesity due to excessive calories Status post sleeve gastrectomy BMI reduced from 43 down to 29 Osteoarthritis of the lower back Recurrent panniculitis. Ventral hernia, 13 x 24 cm, initial and reducible. Esophageal reflux disease Panniculectomy, 7.6 pounds With primary repair of ventral hernia without mesh done on July 12 The above impression and plan of care have been discussed and directed by signing physician. Sharonda Feliz nurse practitioner acting as scribe for signing physician. Plan - Discharge Summary Discharge Rx Participant: Yes New Discharge Prescriptions: New RX: HYDROcodone/APAP 5-325MG [Jenks 5-325] 2 tab PO Q6HR PRN #60 tab PRN Reason: Pain Continue RX: Omeprazole [PriLOSEC] 40 mg PO HS RX: Multivitamins, Thera [Multivitamin (formulary)] 1 tab PO DAILY RX: Cyanocobalamin [Vitamin B-12] 1,000 mcg PO DAILY RX: Cholecalciferol [Vitamin D3] 4,000 unit PO DAILY@1200 tab RX: Levothyroxine Sodium [Synthroid] 175 mcg PO DAILY RX: Calcium Carb-Vit D 500Mg-200Un [Oscal 500+D] 1 tab PO BID RX: Magnesium 400 mg PO DAILY Discontinued RX: Vitamin E (Dl,Tocopheryl Acet) [Vitamin E] 400 unit PO DAILY Co Q-10 60mg 1 tab PO DAILY Wenden-3 Fatty Acids/Fish Oil [Fish Oil 1,000 mg Softgel] 1 cap PO DAILY Discharge Medication List RX: Cyanocobalamin [Vitamin B-12] 1,000 mcg PO DAILY 12/24/14 [History] RX: Multivitamins, Thera [Multivitamin (formulary)] 1 tab PO DAILY 12/24/14 [ History] RX: Omeprazole [PriLOSEC] 40 mg PO HS 12/24/14 [History] RX: Cholecalciferol [Vitamin D3] 4,000 unit PO DAILY@1200 tab 12/26/14 [Rx] RX: Levothyroxine Sodium [Synthroid] 175 mcg PO DAILY 09/09/16 [History] RX: Calcium Carb-Vit D 500Mg-200Un [Oscal 500+D] 1 tab PO BID 07/02/17 [History] RX: Magnesium 400 mg PO DAILY 07/02/17 [History] RX: HYDROcodone/APAP 5-325MG [Jenks 5-325] 2 tab PO Q6HR PRN #60 tab 07/12/17 [ Rx] Follow up Appointment(s)/Referral(s): Virgen Stewart MD [STAFF PHYSICIAN] - 07/22/17 ([facility]) Patient Instructions/Handouts: Chance-Hilliard Drain Care (DC), Abdominal Binder (DC), Panniculectomy (DC) Activity/Diet/Wound Care/Special Instructions: Wear binder at all times. Keep recordings of BENIGNO output. Walk with hips flexed. No showering. No bathtub soaks. No lifting over 4 pounds in 4 weeks. Discharge Disposition: HOME SELF-CARE
== END 2017-07-14 14:31 | disposition home or self-care (01) | DRG 581 ==
LOC: 2ORWHC 10:24 → 3SUR 18:19
PROVIDERS: ADMIT Surgery Plastic and Reconstructive Surgery; ATTEND Surgery Plastic and Reconstructive Surgery
PROC: 0WQF0ZZ Repair Abdominal Wall, Open Approach (ICD-10-PCS; principal; 2017-07-12 12:15)
PROC: 0WBF0ZZ Excision of Abdominal Wall, Open Approach (ICD-10-PCS; principal; 2017-07-12 12:15)
DX: M79.3 Panniculitis, unspecified (principal); E66.01 Morbid (severe) obesity due to excess calories; K21.9 Gastro-esophageal reflux disease without esophagitis; K43.9 Ventral hernia without obstruction or gangrene; M47.9 Spondylosis, unspecified; Z79.899 Other long term (current) drug therapy; Z80.52 Family history of malignant neoplasm of bladder; Z83.3 Family history of diabetes mellitus; Z85.850 Personal history of malignant neoplasm of thyroid; Z87.891 Personal history of nicotine dependence; Z98.84 Bariatric surgery status
CPT/HCPCS: 85025

== ENCOUNTER → 2017-07-22 | Outpatient (CLI) | payer MEDICAID ==
[2017-07-22 13:01] VITALS: BP 134/78; PULSE 62; RESP 16; TEMP 99.4; BMI 27.5
--- NOTE | 2017-09-06 17:45 | P.PN ---
Subjective Progress Note Date: 07/22/17 DATE OF SERVICE: 07/22/2017 CHIEF COMPLAINT: History of panniculectomy. HISTORY OF PRESENT ILLNESS: Monica Fowler is a 66-year-old female who is status post sleeve gastrectomy in July 2013. She is almost 4 years out. At her height of 5 foot, 1-1/2 inch frame, her ideal body weight is 131 pounds. Her highest weight was 234 pounds. Today she comes in weight 148 pounds. She has maintained 86 pound weight loss. Excess percent weight loss is 84%. Body mass index reduced from 43.6 down to 27.5. She is 17 pounds overweight. She status post panniculectomy 07/12/2017. She reports that her left BENIGNO drain has been pulled out. Output otherwise less than 30 mL daily. PHYSICAL EXAM: VITALS: 5 foot, 1-1/2, 148 pounds, body mass index of 27.5. Vital Signs Temp 99.4 F 07/22/17 12:57 Pulse 62 07/22/17 12:57 Resp 16 07/22/17 12:57 BP 134/78 07/22/17 12:57 Pulse Ox ABDOMEN: Soft, nondistended. Incisions clean dry and intact with Dermabond tape. BENIGNO serosanguineous. GENERAL: Well developed and in no acute distress. Pleasant. HEENT: No sclera icterus. Extraocular movements grossly intact. Moist buccal mucosa. Head is atraumatic, normocephalic. Hears conversational speech. No nasal drainage. NECK: Supple without lymphadenopathy. No JV distention. CHEST: Non-labored respirations and equal bilateral excursions. CARDIOVASCULAR: Regular rate and rhythm. Palpable 2+ radial pulses. MUSCULOSKELETAL: No clubbing, cyanosis or edema. NEUROLOGIC: No focal or lateralizing signs. PSYCH: Appropriate affect. Alert and oriented to person, place and time. SKIN: Good skin turgor. Well perfused. ASSESSMENT: 1. Morbid obesity due to excess calories. 2. Body mass index reduced from 43.6 down to 27.5. 3. Status post sleeve gastrectomy. 4. Status post panniculectomy. PLAN: 1. Left drain discontinued at bedside. Outputs less than 30 mL daily. 2. We'll remove right BENIGNO drain in 1 week. 3. Abdominal binder readjusted with external dressings discontinued. Objective - Vital Signs Vital signs: Vital Signs Temp 99.4 F 07/22/17 12:57 Pulse 62 07/22/17 12:57 Resp 16 07/22/17 12:57 BP 134/78 07/22/17 12:57 Pulse Ox Intake & Output 07/21/17 07/22/17 07/22/17 18:59 06:59 18:59 Weight 67.132 kg
== END | disposition home or self-care (01) ==
LOC: BARWHC3 10:04
PROVIDERS: ATTEND Surgery Plastic and Reconstructive Surgery
DX: Z09 Encounter for follow-up examination after completed treatment for conditions other than malignant neoplasm (principal); E66.01 Morbid (severe) obesity due to excess calories; Z68.27 Body mass index [BMI] 27.0-27.9, adult; Z98.84 Bariatric surgery status; Z98.890 Other specified postprocedural states
CPT/HCPCS: 99211

== ENCOUNTER → 2017-08-04 | Outpatient (CLI) | payer MEDICAID ==
[2017-08-04 13:27] VITALS: BP 132/68; PULSE 71; RESP 16; TEMP 99; BMI 27.7
--- NOTE | 2017-09-20 06:09 | P.PN ---
Subjective Progress Note Date: 08/04/17 DATE OF SERVICE: 08/04/2017 CHIEF COMPLAINT: History of panniculectomy. HISTORY OF PRESENT ILLNESS: Monica Fowler is a 66-year-old female who is status post sleeve gastrectomy in July 2013. She is almost 4 years out. At her height of 5 foot, 1-1/2 inch frame, her ideal body weight is 131 pounds. Her highest weight was 234 pounds. Today she comes in weight 149 pounds. She has maintained 85 pound weight loss. Excess percent weight loss is 83%. Body mass index reduced from 43.6 down to 27.7. She is 18 pounds overweight. She status post panniculectomy 07/12/2017. All JPs were discontinued. She denies abdominal pain. She wears an abdominal binder at all times. PHYSICAL EXAM: VITALS: 5 foot, 1-1/2, 149 pounds, body mass index of 27.7. Vital Signs Temp 99.0 F 08/04/17 13:25 Pulse 71 08/04/17 13:25 Resp 16 08/04/17 13:25 BP 132/68 08/04/17 13:25 Pulse Ox ABDOMEN: Soft, nondistended. No palpable abdominal wall seromas. Incisions granulating. No signs of infection or cellulitis. GENERAL: Well developed and in no acute distress. Pleasant. HEENT: No sclera icterus. Extraocular movements grossly intact. Moist buccal mucosa. Head is atraumatic, normocephalic. Hears conversational speech. No nasal drainage. NECK: Supple without lymphadenopathy. No JV distention. CHEST: Non-labored respirations and equal bilateral excursions. CARDIOVASCULAR: Regular rate and rhythm. Palpable 2+ radial pulses. MUSCULOSKELETAL: No clubbing, cyanosis or edema. NEUROLOGIC: No focal or lateralizing signs. PSYCH: Appropriate affect. Alert and oriented to person, place and time. SKIN: Good skin turgor. Well perfused. ASSESSMENT: 1. Morbid obesity due to excess calories. 2. Body mass index reduced from 43.6 down to 27.7. 3. Status post sleeve gastrectomy. 4. Status post panniculectomy. PLAN: 1. Overall, no postsurgical seroma was identified. 2. She'll wear abdominal binder at all times for comfort. 3. She may follow-up as needed. Objective - Vital Signs Vital signs: Vital Signs Temp 99.0 F 08/04/17 13:25 Pulse 71 08/04/17 13:25 Resp 16 08/04/17 13:25 BP 132/68 08/04/17 13:25 Pulse Ox Intake & Output 08/03/17 08/04/17 08/04/17 18:59 06:59 18:59 Weight 67.727 kg
== END | disposition home or self-care (01) ==
LOC: BARWHC3 12:48
PROVIDERS: ATTEND Surgery Plastic and Reconstructive Surgery
DX: Z09 Encounter for follow-up examination after completed treatment for conditions other than malignant neoplasm (principal); E66.01 Morbid (severe) obesity due to excess calories; Z68.27 Body mass index [BMI] 27.0-27.9, adult; Z98.84 Bariatric surgery status; Z98.890 Other specified postprocedural states
CPT/HCPCS: 99211

== ENCOUNTER → 2017-09-21 | Outpatient (CLI) | payer MEDICARE, OTHER ==
[2017-09-21 12:53] LABS: T4, Free (Free Thyroxine) 1.76 ng/dL (0.78-2.19)
[2017-09-21 21:37] LABS: Thyroglobulin <0.20 ng/mL (1.60-59.90)
== END | disposition home or self-care (01) ==
LOC: LABWHC1 11:53
PROVIDERS: ATTEND Internal Medicine Endocrinology, Diabetes & Metabolism
DX: C73 Malignant neoplasm of thyroid gland (principal); E89.0 Postprocedural hypothyroidism
CPT/HCPCS: 36415; 84432; 84439; 84443; 86800

== ENCOUNTER → 2018-03-10 | Outpatient (CLI) | payer MEDICARE, OTHER ==
--- NOTE | 2018-03-10 11:21 | BD ---
EXAMINATION TYPE: Axial Bone Density DATE OF EXAM: 03/10/2018 COMPARISON: 03.28.2013 CLINICAL HISTORY: 67 YR OLD FEMALE....ICD-10 CODE: Z12.31 SCREENING, Z78.0 POST MENOPAUSAL STATE Height: 60.2 Weight: 151 FRAX RISK QUESTIONS: Secondary Osteoporosis: YES 3. Menopause before 45: YES...AT 43 RISK FACTORS HISTORY OF: Active: YES Diet low in dairy products/other sources of calcium: NO Postmenopausal woman: YES, TOTAL HYST AT 43 YRS OLD Lost more than 2 inches in height since high school: YES MEDICATIONS: Thyroid Medications: YES, SYNTHROID, 4 YRS Additional Medications: HX OF RADIATION, CALCIUM AND VIT D, REFLUX MEDS, Additional History: HX OF THYROID CA, EXAM MEASUREMENTS: Bone mineral densitometry was performed using the [employer] System. Bone mineral density as measured about the Lumbar spine is: ----- L1-L4(G/cm2): 1.202 T Score Values are as follows: ----- L1: 0.1 ----- L2: 0.2 ----- L3: 0.3 ----- L4: -0.1 ----- L1-L4: 0.2 Bone mineral density has: Decreased -12.4% since study of: 03.28.2013 Bone mineral density about the R hip (g/cm2): 0.815 Bone mineral density about the L hip (g/cm2): 0.862 T Score values are as follows: -----R Neck: -1.7 -----L Neck: -1.0 -----R Total: -1.5 -----L Total: -1.2 Bone mineral density has: Decreased -24.5% since study of: 03.28.2013 FRAX%s: THERE IS A 6.1% CHANCE OF A MAJOR OSTEOPOROTIC FX AND A 1.1% FOR A HIP FX.....PROBABILITY OF FX IN 10 YRS TIME IMPRESSION: Osteopenia (T Score between -2.5 and -1). There is slightly increased risk of fracture and the patient may be considered for treatment. Re-Screen 2-5 years. NOTE: T-SCORE=SD OF THE YOUNG ADULT MEAN.
--- NOTE | 2018-03-11 11:02 | MM ---
Reason for exam: screening (asymptomatic). Last mammogram was performed 1 year and 9 months ago. History: Patient is postmenopausal and has history of other cancer at age 64. Physical Findings: A clinical breast exam by your physician is recommended on an annual basis and results should be correlated with mammographic findings. MG 3D Screening Mammo W/Cad Bilateral CC and MLO view(s) were taken. Prior study comparison: June 23, 2016, bilateral MG 3d screening mammo w/cad. June 18, 2015, bilateral MG screening mammo w CAD. The breast tissue is heterogeneously dense. This may lower the sensitivity of mammography. There is a stable right lower inner quadrant mass. Benign appearing bilateral calcifications. No suspicious abnormality. No significant changes when compared with prior studies. ASSESSMENT: Benign, BI-RAD 2 RECOMMENDATION: Routine screening mammogram of both breasts in 1 year.
== END | disposition home or self-care (01) ==
LOC: RADMAMWWP 06:58
PROVIDERS: ATTEND Family Medicine
DX: Z12.31 Encounter for screening mammogram for malignant neoplasm of breast (principal); M85.80 Other specified disorders of bone density and structure, unspecified site; Z78.0 Asymptomatic menopausal state
CPT/HCPCS: 77063; 77067; 77080

== ENCOUNTER → 2019-10-03 | Outpatient (CLI) | payer MEDICARE ==
[2019-10-03 14:27] LABS: HCT 40.1 % (34.0-46.0); HGB 12.7 gm/dL (11.4-16.0); MCH 29.4 pg (25.0-35.0); MCHC 31.6 g/dL (31.0-37.0); MCV 93.1 fL (80.0-100.0); Platelet Count 266 k/uL (150-450); RBC 4.31 m/uL (3.80-5.40); RDW 13.1 % (11.5-15.5); WBC 8.8 k/uL (3.8-10.6)
[2019-10-03 14:54] LABS: Partial Thromboplastin Time 22.3 sec (22.0-30.0); Prothrombin Time 10.1 sec (9.0-12.0)
[2019-10-03 18:46] LABS: % Iron Saturation 21.69 (12.00-45.00); ALT 16 U/L (8-44); AST 20 U/L (13-35); African American GFR (CKD) 76.1 (60.0-200.0); Albumin/Globulin Ratio 2.05 (1.60-3.17); Alkaline Phosphatase 69 U/L (41-126); BUN/Creat Ratio 27.78 Ratio (12.00-20.00); Calcium 9.3 mg/dL (8.7-10.3); Carbon Dioxide 27.9 mmol/L (21.6-31.8); Chloride 107 mmol/L (96-109); Chol/HDL Ratio 3.95; Cholesterol 221 mg/dL (0-200); Globulin 2.1 g/dL (1.6-3.3); Glucose 110 mg/dL (70-110); Iron 54 ug/dL (50-170); LDL Cholesterol,Calculated 126.2 mg/dL (0.0-131.0); Non-African American GFR(CKD) 65.7 (60.0-200.0); Phosphorus 4.4 mg/dL (2.4-5.1); Potassium 4.5 mmol/L (3.5-5.5); Sodium 144 mmol/L (135-145); Total Bilirubin 0.3 mg/dL (0.3-1.2); Total Iron Binding Capacity 249 ug/dL (228-460); Total Protein 6.4 g/dL (6.2-8.2)
[2019-10-03 18:57] LABS: Ferritin 237.6 ng/mL (10.0-291.0); Folate, Serum >24.0 ng/mL
[2019-10-04 15:00] LABS: Zinc, Serum 81 ug/dL (60-130)
[2019-10-05 06:31] LABS: Vit B1(Thiamine) 81 ug/L (38-122)
[2019-10-05 06:39] LABS: Vitamin A 55 ug/dL (38-106)
[2019-10-06 01:48] LABS: Selenium 113 mcg/L (63-160)
== END | disposition home or self-care (01) ==
LOC: LABWHC1 12:55
PROVIDERS: ATTEND Surgery Plastic and Reconstructive Surgery
DX: E21.1 Secondary hyperparathyroidism, not elsewhere classified (principal); N19 Unspecified kidney failure; E89.1 Postprocedural hypoinsulinemia; D50.9 Iron deficiency anemia, unspecified; K90.9 Intestinal malabsorption, unspecified; K74.1 Hepatic sclerosis; K50.90 Crohn's disease, unspecified, without complications; E44.0 Moderate protein-calorie malnutrition; E66.01 Morbid (severe) obesity due to excess calories; E55.9 Vitamin D deficiency, unspecified; Z51.81 Encounter for therapeutic drug level monitoring
CPT/HCPCS: 36415; 80053; 80061; 82525; 82607; 82728; 82746; 83540; 83550; 83735; 83970; 84100; 84134; 84255; 84425; 84443; 84590; 84630; 85027; 85610; 85730

== ENCOUNTER → 2019-10-04 | Outpatient (CLI) | payer MEDICARE, OTHER ==
[2019-10-04 13:52] VITALS: BP 137/86; PULSE 76; TEMP 97.8; BMI 33.6
--- NOTE | 2019-10-04 14:01 | P.HPBAR ---
Bariatric H&P - History & Physicial H&P Date: 10/04/19 History & Physicial: Visit/CC: ANNUAL BARIATRIC F/U Patient initial contact: Initial weight: 96.615 kg Initial weight in pounds: 213.00 Height: 5 ft 1.5 in Initial BMI: 39.6 Last weight: Current weight: 82.1 kg Current weight in pounds: 181.00 Current BMI: 33.6 [place] body weight (based on NIH guidelines): 48.761 kg Excess body weight loss: 30.3% The patient is a 69 year-old F who presents for Bariatric Assessment. She comes in with 30+ pound weight gain. Highest weight 266 pounds. She lifts 50 pound bag of chicken feed. She was lost to follow up July 2017. She has gained weight from 148 pounds to 181 pounds. She has baseline thyroid problems. She is on 175 mcg synthroid. She reports occasional pain at the right lower quadrant. PLAN: 1. Labs August. 2. Start Journaling foods 3. Labs reviewed with no hyperthyroidism 4. Two week protein 5. US of soft tissue for hernia. Past Medical History Past Medical History: GERD/Reflux, Thyroid Disorder Additional Past Medical History / Comment(s): HEART MURMUR, THYROID NODULES . thyroid CA, gastric sleeve History of Any Multi-Drug Resistant Organisms: None Reported Past Surgical History: Adenoidectomy, Bariatric Surgery, Hernia Repair, Hysterectomy, Tonsillectomy Additional Past Surgical History / Comment(s): T & A AND UMBILICAL HERNIA REPAIR A CHILD, HYSTERECTOMY, GASTRIC SLEEVE JUL 2013.thyroidectomy PANNILECTOMY Past Anesthesia/Blood Transfusion Reactions: Family History of Problems w/ A nesthesia, Postoperative Nausea & Vomiting (PONV) Additional Past Anesthesia/Blood Transfusion Reaction / Comm: MOTHER AND DAUGHTER ALSO HAVE PONV Smoking Status: Former smoker - Past Family History Sister(s) Family Medical History: GERD/Reflux Father Family Medical History: Cancer Additional Family Medical History / Comment(s): BLADDER CANCER Surgical - Exam Vital Signs Temp Pulse BP 97.8 F 76 137/86 10/04/19 13:34 10/04/19 13:34 10/04/19 13:34 Bariatric Checklist Checklist: Plan: Checklist: EGD: 1. Hiatal hernia: 2. H. Pylori: HgbA1c: Vitamin D: Smoking: Former smoker Primary care physician referral: DR. MAGALLANES Psychiatry clearance: Cardiology clearance: Sleep study: Diet journal: VTE risk score: VTE risk level: Rehab needs at discharge:
== END | disposition home or self-care (01) ==
LOC: BARWHC3 12:55
PROVIDERS: ATTEND Surgery Plastic and Reconstructive Surgery
DX: R63.5 Abnormal weight gain (principal); E07.9 Disorder of thyroid, unspecified; Z87.891 Personal history of nicotine dependence; Z98.84 Bariatric surgery status; Z79.890 Hormone replacement therapy
CPT/HCPCS: 99211

== ENCOUNTER → 2019-10-17 | Outpatient (CLI) | payer MEDICARE ==
--- NOTE | 2019-10-17 10:16 | US ---
EXAMINATION TYPE: US abdomen limited DATE OF EXAM: 10/17/2019 COMPARISON: NONE CLINICAL HISTORY: R10.31 right lower quad pain, R10 mass. Pt states a "pulling" feeling within her RL Q/ h/o gastric surgery TECHNIQUE/FINDINGS: Grayscale imaging was performed of the patient's area of concern with and without Valsalva maneuver.No abnormality visualized in area of pt's concern/ Valsalva images also obtained . No solid or cystic mass. IMPRESSION: No solid or cystic mass sonographically. No evidence of hernia at the time of the exam.
== END | disposition home or self-care (01) ==
LOC: RADUSWWP 06:58
PROVIDERS: ATTEND Surgery Plastic and Reconstructive Surgery
DX: R10.31 Right lower quadrant pain (principal); R19.00 Intra-abdominal and pelvic swelling, mass and lump, unspecified site
CPT/HCPCS: 76705

== ENCOUNTER → 2020-01-10 | Outpatient (CLI) | payer MEDICARE ==
[2020-01-10 14:06] VITALS: BP 128/85; PULSE 77; RESP 20; TEMP 98.6; BMI 29.9
--- NOTE | 2020-01-10 14:13 | P.PN ---
Subjective Progress Note Date: 01/10/20 DATE OF SERVICE: 01/10/2020 CHIEF COMPLAINT: Status post sleeve gastrectomy. HISTORY OF PRESENT ILLNESS: Monica Fowler is a 69-year-old female who is status post sleeve gastrectomy in July 2013. She is 6+ years out. She reports pulling, pricking sensation of the right lower abdomen. Separately her main concern includes hernia. She reports moderate weight regain over the past 5 years. She has made changes including tracking her foods. As a result, she has lost 2 pounds in 3 months. At her height of 5 foot, 1-1/2 inch frame, her ideal body weight is 131 pounds. Highest weight 266 pounds. Today she comes in 179 pounds from 181 pounds, 3 months ago. She has lost 2 pounds in 3 months. She has maintained 87 pound weight loss. Excess percent weight loss is 64%. Body mass index reduced from 49.5 down to 33.4. She is 48 pounds overweight. PHYSICAL EXAM: VITALS: 5 foot, 1-1/2, 179 pounds, body mass index of 33.4 Vital Signs Temp 98.6 F 01/10/20 14:00 Pulse 77 01/10/20 14:00 Resp 20 01/10/20 14:00 BP 128/85 01/10/20 14:00 Pulse Ox Intake & Output 01/10/20 01/10/20 01/11/20 06:59 18:59 06:59 Weight 81.556 kg ABDOMEN: Soft, nondistended. GENERAL: Well developed and in no acute distress. Pleasant. HEENT: No sclera icterus. Extraocular movements grossly intact. Moist buccal mucosa. Head is atraumatic, normocephalic. Hears conversational speech. No nasal drainage. NECK: Supple without lymphadenopathy. No JV distention. CHEST: Non-labored respirations and equal bilateral excursions. CARDIOVASCULAR: Regular rate and rhythm. Palpable 2+ radial pulses. MUSCULOSKELETAL: No clubbing, cyanosis or edema. NEUROLOGIC: No focal or lateralizing signs. PSYCH: Appropriate affect. Alert and oriented to person, place and time. SKIN: Good skin turgor. Well perfused. STUDIES: Ultrasound of the soft tissue independently reviewed demonstrates no evidence of hernia. LABS: Reviewed without any findings of vitamin deficiencies. TSH is suppressed. Cholesterol elevated 221. ASSESSMENT: 1. Morbid obesity due to excess calories. 2. Body mass index reduced from 43.6 down to 3. Status post sleeve gastrectomy. 4. History of thyroid cancer 5. Weight gain following bariatric procedure 6. Dietary surveillance and counseling PLAN: 1. Recommend exercise for her 30 pound weight gain. 2. Follow up in 3 months or as needed. Objective - Vital Signs Vital signs: Vital Signs Temp 98.6 F 01/10/20 14:00 Pulse 77 01/10/20 14:00 Resp 20 01/10/20 14:00 BP 128/85 01/10/20 14:00 Pulse Ox Intake & Output 01/09/20 01/10/20 01/10/20 18:59 06:59 18:59 Weight 81.556 kg
== END | disposition home or self-care (01) ==
LOC: BARWHC3 13:32
PROVIDERS: ATTEND Surgery Plastic and Reconstructive Surgery
DX: E66.01 Morbid (severe) obesity due to excess calories (principal); Z98.84 Bariatric surgery status; Z85.850 Personal history of malignant neoplasm of thyroid; Z71.3 Dietary counseling and surveillance; Z68.33 Body mass index [BMI] 33.0-33.9, adult
CPT/HCPCS: 99211

== ENCOUNTER → 2020-05-08 | Outpatient (CLI) | payer MEDICARE | END | disposition home or self-care (01) | LOC: LABWHC1 13:48 | PROVIDERS: ATTEND Internal Medicine Endocrinology, Diabetes & Metabolism | DX: E55.9 Vitamin D deficiency, unspecified (principal); E89.0 Postprocedural hypothyroidism; C73 Malignant neoplasm of thyroid gland | CPT/HCPCS: 36415; 84443 ==

== ENCOUNTER → 2020-05-30 | Outpatient (CLI) | payer MEDICARE ==
[2020-05-30 14:32] LABS: African American GFR (CKD) >90 (>60 ml/min/1.73 sqM); Blood Urea Nitrogen 32 mg/dL (7-17); Non-African American GFR(CKD) 89 (>60 ml/min/1.73 sqM)
--- NOTE | 2020-05-30 16:00 | CT ---
EXAMINATION TYPE: CT abdomen pelvis w con DATE OF EXAM: 05/30/2020 HISTORY: Diverticulitis, nonspecified pain. CT DLP: 873mGycm Automated Exposure Control for Dose Reduction was Utilized. CONTRAST: CT scan of the abdomen and pelvis is performed with IV Contrast, patient injected with 100 mL of Isov ue 300. COMPARISON: None. FINDINGS: LUNG BASES: Mild to moderate bibasilar linear scarring and/or atelectasis. LIVER/GB: No significant abnormality is appreciated. PANCREAS: No significant abnormality is seen. SPLEEN: No significant abnormality is seen. ADRENALS: No significant abnormality is seen. KIDNEYS: Symmetric cortical medullary uptake and excretion. No concerning solid or cystic renal mass or hydronephrosis seen bilaterally. BOWEL: Prior surgical change at diaphragmatic hiatus, recurrent small to moderate size hiatal hernia. Correlate clinically. Oral contrast reaches level of the proximal left colon. No suspicious small or large bowel dilatation. Mild to moderate wall thickening involving terminal ileum. No significant bishop rrounding fat stranding. Findings favor product of poor distention. No significant diverticulosis or CT evidence for acute diverticulitis UTERUS/ADNEXA: Uterus surgically absent or markedly atrophic. Calcified left pelvic phlebolith. LYMPH NODES: No greater than 1cm abdominal or pelvic lymph nodes are appreciated. OSSEOUS STRUCTURES: Moderate to severe disc space narrowing L5-S1 level with vacuum disc phenomenon. Posterior spurring effaces the anterior thecal sac L1-L2 level. Mild to moderate multilevel anterior and lateral spurring in the thoracolumbar spine. Facet arthropathy lower lumbar levels. OTHER: No significant additional abnormality is seen. IMPRESSION: 1. No CT evidence for significant colonic diverticulosis or acute diverticulitis. Small to moderate-s ized recurrent hiatal hernia noted despite surgical change at this level.
== END | disposition home or self-care (01) ==
LOC: RADCTMAIN 13:34
PROVIDERS: ATTEND Surgery Plastic and Reconstructive Surgery
DX: K44.9 Diaphragmatic hernia without obstruction or gangrene (principal)
CPT/HCPCS: 82565; 84520; 74177; 36415; Q9967

== ENCOUNTER 2020-06-12 07:16 | Day surgery (SDC) | payer MEDICARE ==
[2020-06-10 09:19] VITALS: BMI 31.6
[~2020-06-12 07:16] MED LIST changes: -ACETAMINOPHEN IV (For NPO) 1,000 MG in EMPTY BAG 1 BAG IVPB ONE; -DEXAMETHASONE SOD PHOSPHATE 10 MG/ML 1 ML VIAL IV ONE; +LACTATED RINGERS 1,000 ML IV SCH; +LIDOCAINE 1% (10MG/ML) FOR IV START INTRADERMA PRN; -MIDAZOLAM 2 MG/2 ML VIAL IV PRN; -ONDANSETRON 4 MG/2 ML VIAL IVP ONE; -SCOPOLAMINE 1.5MG/72HR PATCH TRANSDERM ONE; -ceFAZolin IN SWFI 2 GM/20 ML SYRINGE IVP ONE
[2020-06-12 08:17] VITALS: TEMP 97.5
--- NOTE | 2020-06-12 08:23 | P.GSHP ---
History of Present Illness H&P Date: 06/12/20 CHIEF COMPLAINT: Colon screen HISTORY OF PRESENT ILLNESS: The patient is a 69-year-old female who presents for colon screen. Lower endoscopy was offered for further evaluation and management. PAST MEDICAL HISTORY: Please see list. PAST SURGICAL HISTORY: Please see list. MEDICATIONS: Please see list. ALLERGIES: Please see list. SOCIAL HISTORY: No illicit drug use FAMILY HISTORY: No reports of Crohn disease or ulcerative colitis. REVIEW OF ORGAN SYSTEMS: CONSTITUTIONAL: No reports of fevers or chills. PHYSICAL EXAM: VITAL SIGNS: Stable GENERAL: Well-developed pleasant in no acute distress. HEENT: No scleral icterus. Extraocular movements grossly intact. Moist buccal mucosa. NECK: Supple without lymphadenopathy. CHEST: Unlabored respirations. Equal bilateral excursions. CARDIOVASCULAR: Regular rate and rhythm. Distal 2+ pulses. ABDOMEN: Soft, nontender, nondistended. MUSCULOSKELETAL: No clubbing, cyanosis, or edema. ASSESSMENT: 1. Colon screen. PLAN: 1. Recommend proceeding with a lower endoscopy Past Medical History Past Medical History: GERD/Reflux, Thyroid Disorder Additional Past Medical History / Comment(s): HEART MURMUR, THYROID NODULES . thyroid CA, gastric sleeve History of Any Multi-Drug Resistant Organisms: None Reported Past Surgical History: Adenoidectomy, Bariatric Surgery, Hernia Repair, Hysterectomy, Tonsillectomy Additional Past Surgical History / Comment(s): T & A AND UMBILICAL HERNIA REPAIR A CHILD, HYSTERECTOMY, GASTRIC SLEEVE JUL 2013.thyroidectomy PANNILECTOMY Past Anesthesia/Blood Transfusion Reactions: Family History of Problems w/ Anesthesia, Postoperative Nausea & Vomiting (PONV) Additional Past Anesthesia/Blood Transfusion Reaction / Comment(s): MOTHER AND DAUGHTER ALSO HAVE PONV Smoking Status: Former smoker - Past Family History Sister(s) Family Medical History: GERD/Reflux Father Family Medical History: Cancer Additional Family Medical History / Comment(s): BLADDER CANCER Medications and Allergies Home Medications Medication Instructions Recorded Confirmed Type Cyanocobalamin [Vitamin B-12] 1,000 mcg PO DAILY 12/24/14 06/10/20 History Multivitamins, Thera [Multivitamin 1 tab PO DAILY 12/24/14 06/10/20 History (formulary)] Omeprazole [PriLOSEC] 40 mg PO HS 12/24/14 06/10/20 History Levothyroxine Sodium [Synthroid] 175 mcg PO MOTUWETH 09/09/16 06/10/20 History Magnesium 400 mg PO DAILY 07/02/17 06/10/20 History Vit C/Ascorb Sod/Multivit-Min 500 mg PO DAILY 01/10/20 06/10/20 History [Emergen-C 500 mg Chewable Tab] Cholecalciferol [Vitamin D3 (25 2,000 unit PO BID 05/08/20 06/10/20 History Mcg = 1000 Iu)] Levothyroxine Sodium [Synthroid] 0.5 tab PO FR 06/10/20 06/10/20 History Allergies Allergy/AdvReac Type Severity Reaction Status Date / Time adhesive AdvReac Unknown RED Verified 06/10/20 09:13 IRRITATED SKIN Surgical - Exam Vital Signs Temp Pulse Resp BP Pulse Ox 97.5 F L 67 20 140/78 98 06/12/20 08:13 06/12/20 08:13 06/12/20 08:13 06/12/20 08:13 06/12/20 08:13
[2020-06-12] MEDS ORDERED: PROPOFOL 10 MG/ML 20 ML VIAL IV ONE (08:26)
[2020-06-12 08:51] VITALS: RESP 18
--- NOTE | 2020-06-12 08:55 | P.PCN ---
Date of Procedure: 06/12/20 Description of Procedure: PREOPERATIVE DIAGNOSIS: Personal history of colon polyps POSTOPERATIVE DIAGNOSIS: Personal history of colon polyps Ascending colon polyp OPERATION: Colonoscopy to the ileocecal valve and appendiceal orifice, cecum Colonoscopy with cold forceps biopsies SURGEON: Virgen Stewart MD. ANESTHESIA: MAC. INDICATIONS: The patient is an 69-year-old female who presents personal history of colon polyps. Last colonoscopy over 5 years. Benefits and risks were described and informed consent was obtained. DESCRIPTION OF PROCEDURE: The patient had undergone Suprep. She had been brought into the operating room and laid in the left lateral decubitus position. After adequate intravenous sedation, the rectum was examined with 2% lidocaine jelly. The prostate was unremarkable. No external hemorrhoids were encountered. The rectal tone was within normal limits. No lesions were palpated in the rectal vault. An Olympus colonoscope was advanced until the cecum, ileocecal valve and appendiceal orifice were clearly viewed. The prep was fair. No sigmoid diverticulosis was encountered. A colonic polyp was found and removed with cold forceps. No evidence of focal colitis was found. Retroflexion of the scope demonstrated no grade 1 internal hemorrhoids without active bleeding or inflammation. The colon was desufflated. The patient had tolerated the procedure well. Withdrawal time was over 6 minutes. FINDINGS: Aronchick preparation quality scale 2 (1-5) No internal hemorrhoids No external hemorrhoids No arteriovenous malformations. No sigmoid diverticulosis Removal of 1 polyp: - Cold forceps biopsy at ascending colon, 4 mm polyp. No focal colitis. RECOMMENDATIONS: Repeat colonoscopy 5 years, 2024 Plan - Discharge Summary Discharge Rx Participant: No New Discharge Prescriptions: Continue Omeprazole [PriLOSEC] 40 mg PO HS Multivitamins, Thera [Multivitamin (formulary)] 1 tab PO DAILY Cyanocobalamin [Vitamin B-12] 1,000 mcg PO DAILY Levothyroxine Sodium [Synthroid] 175 mcg PO MOTUWETH Magnesium 400 mg PO DAILY Vit C/Ascorb Sod/Multivit-Min [Emergen-C 500 mg Chewable Tab] 500 mg PO DAILY Cholecalciferol [Vitamin D3 (25 Mcg = 1000 Iu)] 2,000 unit PO BID Levothyroxine Sodium [Synthroid] 0.5 tab PO FR Discharge Medication List Cyanocobalamin [Vitamin B-12] 1,000 mcg PO DAILY 12/24/14 [History] Multivitamins, Thera [Multivitamin (formulary)] 1 tab PO DAILY 12/24/14 [History] Omeprazole [PriLOSEC] 40 mg PO HS 12/24/14 [History] Levothyroxine Sodium [Synthroid] 175 mcg PO MOTUWETH 09/09/16 [History] Magnesium 400 mg PO DAILY 07/02/17 [History] Vit C/Ascorb Sod/Multivit-Min [Emergen-C 500 mg Chewable Tab] 500 mg PO DAILY 01/10/20 [History] Cholecalciferol [Vitamin D3 (25 Mcg = 1000 Iu)] 2,000 unit PO BID 05/08/20 [History] Levothyroxine Sodium [Synthroid] 0.5 tab PO FR 06/10/20 [History] Follow up Appointment(s)/Referral(s): Virgen Stewart MD [STAFF PHYSICIAN] - As Needed Patient Instructions/Handouts: Colonoscopy (DC), Colorectal Polyps (GEN) Activity/Diet/Wound Care/Special Instructions: Repeat colonoscopy in 5 years, 2024 Discharge Disposition: HOME SELF-CARE
[2020-06-12 09:02] VITALS: BP 122/74; PULSE 59
== END 2020-06-12 09:23 | disposition home or self-care (01) ==
LOC: ORWHC2ENDO 07:16
PROVIDERS: ATTEND Surgery Plastic and Reconstructive Surgery
DX: Z12.11 Encounter for screening for malignant neoplasm of colon (principal); D12.2 Benign neoplasm of ascending colon; Z86.010 Personal history of colon polyps; K21.9 Gastro-esophageal reflux disease without esophagitis; E89.0 Postprocedural hypothyroidism; Z79.890 Hormone replacement therapy; Z79.899 Other long term (current) drug therapy; Z91.048 Other nonmedicinal substance allergy status; Z85.850 Personal history of malignant neoplasm of thyroid; Z90.710 Acquired absence of both cervix and uterus; Z98.890 Other specified postprocedural states; Z98.84 Bariatric surgery status; Z87.891 Personal history of nicotine dependence; Z80.52 Family history of malignant neoplasm of bladder; Z83.79 Family history of other diseases of the digestive system
CPT/HCPCS: 88305; 45380; J2704

== ENCOUNTER → 2020-06-19 | Outpatient (CLI) | payer MEDICARE ==
[2020-06-19 12:59] VITALS: BP 147/88; PULSE 57; TEMP 98; BMI 32.3
--- NOTE | 2020-06-19 13:18 | P.PN ---
Subjective Progress Note Date: 06/19/20 DATE OF SERVICE: 06/19/2020 CHIEF COMPLAINT: Status post sleeve gastrectomy. HISTORY OF PRESENT ILLNESS: Monica Fowler is a 69-year-old female who is status post sleeve gastrectomy in July 2013. She is 7 years out. She comes in with multiple new complaints including epigastric pain, right lower quadrant pain, and right upper quadrant pain. Her last colonoscopy was 5 years ago. She presents with worsening symptoms. She presents today with management of her multiple complaints. At her height of 5 foot, 1-1/2 inch frame, her ideal body weight is 131 pounds. Highest weight 266 pounds. Today she comes in 174 pounds from 175 pounds, 1 month ago. She has lost 1 pound in 1 months. She has maintained 92 pound weight loss lifetime. Lifetime excess percent weight loss is 68%. Body mass index reduced from 49.5 down to 32.4. She is 43 pounds overweight. PAST MEDICAL HISTORY: 1. Gastroesophageal reflux disease. 2. Severe postop nausea and vomiting. 3. Morbid obesity, now resolved. 4. Chronic panniculitis 5. Hyperthyroidism. 6. Personal history of thyroid cancer in remission. PAST SURGICAL HISTORY: 1. Hysterectomy. 2. EGD. 3. Colonoscopy. 4. Umbilical hernia repair. 5. Tonsillectomy. 6. Adenoidectomy. 7. Laparoscopic sleeve gastrectomy. 8. Status post total thyroidectomy. 9. Status post panniculectomy MEDICATIONS: Home Medications Medication Instructions Recorded Confirmed Cyanocobalamin [Vitamin B-12] 1,000 mcg PO DAILY 12/24/14 08/27/20 Multivitamins, Thera [Multivitamin 1 tab PO DAILY 12/24/14 08/27/20 (formulary)] Omeprazole [PriLOSEC] 40 mg PO HS 12/24/14 08/27/20 Levothyroxine Sodium [Synthroid] 112 mcg PO DAILY 09/09/16 08/27/20 Magnesium 400 mg PO DAILY 07/02/17 08/27/20 Cholecalciferol [Vitamin D3 (25 2,000 unit PO BID 05/08/20 08/27/20 Mcg = 1000 Iu)] Ascorbic Acid [Vitamin C] 500 mg PO BID 08/27/20 08/27/20 L.acidoph,Paracasei, B.lactis 1 each PO DAILY 08/27/20 08/27/20 [Probiotic] Turmeric Root Extract [Turmeric] 1,000 mg PO DAILY 08/27/20 08/27/20 Ubidecarenone [Co Q-10] 100 mg PO DAILY 08/27/20 08/27/20 Vitamin E Acetate [Vitamin E] 400 unit PO DAILY 08/27/20 08/27/20 Zinc 50 mg PO DAILY 08/27/20 08/27/20 diphenhydrAMINE [Benadryl] 12.5 mg PO HS PRN 08/27/20 08/27/20 ALLERGIES: ADHESIVE. SOCIAL HISTORY: She is . Lifelong nontobacco user. FAMILY HISTORY: Significant for morbid obesity including diabetes. REVIEW OF SYSTEMS: CONSTITUTIONAL: At her height of 5 foot, 1-1/2 inch frame, her ideal body weight is 131 pounds. Highest weight 266 pounds. Body mass index reduced from 49.5. ENDOCRINE: History of thyroid cancer, status post total thyroidectomy. No bloo d sugar glucose intolerance. MUSCULOSKELETAL: Resolved lower back pain, knee pain. GASTROINTESTINAL: Gastroesophageal reflux disease controlled with omeprazole. No reports of constipation or dysphagia. HEENT: Denies troubles with vision or hearing. RESPIRATORY: No reports of dyspnea on exertion. No reports of obstructive sleep apnea. CARDIAC: No reports of recent chest pain or heart attack. NEURO: No reports of stroke or seizure disorder. PSYCH: No reports of depression or suicidal ideation. HEMATOLOGIC: No reports of DVTs or pulmonary emboli. SKIN: Resolved panniculitis. No history of skin cancer. BREAST: No recent breast cancer. No palpable lumps. PHYSICAL EXAM: VITALS: 5 foot, 1-12, 174 pounds, Body mass index of 32.4 Vital Signs Temp 98.0 F 06/19/20 12:54 Pulse 57 L 06/19/20 12:54 Resp BP 147/88 06/19/20 12:54 Pulse Ox ABDOMEN: Soft, nondistended. GENERAL: Well developed and in no acute distress. Pleasant. HEENT: No sclera icterus. Extraocular movements grossly intact. Moist buccal mucosa. Head is atraumatic, normocephalic. Hears conversational speech. No nasal drainage. NECK: Supple without lymphadenopathy. No JV distention. CHEST: Non-labored respirations and equal bilateral excursions. CARDIOVASCULAR: Regular rate and rhythm. Palpable 2+ radial pulses. MUSCULOSKELETAL: No clubbing, cyanosis or edema. NEUROLOGIC: No focal or lateralizing signs. PSYCH: Appropriate affect. Alert and oriented to person, place and time. SKIN: Good skin turgor. Well perfused. LABS: Repeat TSH within normal limits STUDIES: CT of the abdomen and pelvis independently reviewed showing hiatal hernia. Gallbladder is distended. ASSESSMENT: 1. Morbid obesity due to excess calories. 2. Body mass index reduced from 43.6, now 32.4 3. Status post sleeve gastrectomy. 4. History of thyroid cancer 5. Weight gain following bariatric procedure 6. Dietary surveillance and counseling 7. Right upper quadrant pain 8. Right lower quadrant pain 9. Epigastric pain PLAN: 1. She has a large symptomatic hiatal hernia, which would likely benefit from repair. 2. She reports right lower quadrant abdominal pain consistent with chronic appendicitis, recommend appendectomy. 3. Recommend HIDA scan. 4. Recommend ultrasound of her gallbladder. 5. Will need cardiac risk assessment. Objective - Vital Signs Vital signs: Vital Signs Temp 98.0 F 06/19/20 12:54 Pulse 57 L 06/19/20 12:54 Resp BP 147/88 06/19/20 12:54 Pulse Ox Intake & Output 06/18/20 06/19/20 06/19/20 18:59 06:59 18:59 Weight 78.97 kg
== END | disposition home or self-care (01) ==
LOC: BARWHC3 12:29
PROVIDERS: ATTEND Surgery Plastic and Reconstructive Surgery
DX: E66.01 Morbid (severe) obesity due to excess calories (principal); R10.13 Epigastric pain; R10.11 Right upper quadrant pain; Z68.32 Body mass index [BMI] 32.0-32.9, adult; Z98.84 Bariatric surgery status; Z71.3 Dietary counseling and surveillance; Z85.850 Personal history of malignant neoplasm of thyroid
CPT/HCPCS: 99211

== ENCOUNTER → 2020-08-27 | Outpatient (CLI) | payer MEDICARE ==
[2020-08-27 11:27] LABS: Basophils # (A) 0.1 k/uL (0-0.2); Basophils % (A) 1 %; Eosinophils # (A) 0.1 k/uL (0-0.7); Eosinophils % (A) 1 %; HCT 41.9 % (34.0-46.0); HGB 13.3 gm/dL (11.4-16.0); Lymphocytes # (A) 1.9 k/uL (1.0-4.8); Lymphocytes % (A) 19 %; MCH 30.1 pg (25.0-35.0); MCHC 31.8 g/dL (31.0-37.0); MCV 94.6 fL (80.0-100.0); Mean Platelet Volume 7.5; Monocytes # (A) 0.5 k/uL (0-1.0); Monocytes % (A) 5 %; Neutrophils # (A) 7.1 k/uL (1.3-7.7); Neutrophils % (A) 72 %; Platelet Count 284 k/uL (150-450); RBC 4.43 m/uL (3.80-5.40); RDW 13.2 % (11.5-15.5); WBC 9.8 k/uL (3.8-10.6)
[2020-08-27 11:45] LABS: Calcium 9.4 mg/dL (8.4-10.2); Potassium 4.8 mmol/L (3.5-5.1); Total Bilirubin 0.5 mg/dL (0.2-1.3); Total Protein 7.1 g/dL (6.3-8.2)
== END | disposition home or self-care (01) ==
LOC: LABPAT 10:43
PROVIDERS: ATTEND Surgery Plastic and Reconstructive Surgery
DX: Z01.818 Encounter for other preprocedural examination (principal)
CPT/HCPCS: 80053; 85025; 93005

== ENCOUNTER → 2021-03-07 | Outpatient (CLI) | payer MEDICARE ==
[2021-03-07 09:44] LABS: Basophils # (A) 0.1 k/uL (0-0.2); Basophils % (A) 1 %; Eosinophils # (A) 0.1 k/uL (0-0.7); Eosinophils % (A) 2 %; HCT 40.8 % (34.0-46.0); HGB 13.6 gm/dL (11.4-16.0); Lymphocytes # (A) 1.7 k/uL (1.0-4.8); Lymphocytes % (A) 23 %; MCH 30.8 pg (25.0-35.0); MCHC 33.2 g/dL (31.0-37.0); MCV 92.8 fL (80.0-100.0); Mean Platelet Volume 7.7; Monocytes # (A) 0.5 k/uL (0-1.0); Monocytes % (A) 7 %; Neutrophils % (A) 66 %; Platelet Count 261 k/uL (150-450); RDW 13.4 % (11.5-15.5); WBC 7.6 k/uL (3.8-10.6)
[2021-03-07 10:07] LABS: ALT 18 U/L (4-34); AST 33 U/L (14-36); African American GFR (CKD) >90 (>60 ml/min/1.73 sqM); Albumin 4.3 g/dL (3.5-5.0); Alkaline Phosphatase 68 U/L (38-126); Anion Gap 7 mmol/L; Blood Urea Nitrogen 26 mg/dL (7-17); Calcium 9.5 mg/dL (8.4-10.2); Carbon Dioxide 29 mmol/L (22-30); Chloride 104 mmol/L (98-107); Glucose 101 mg/dL (74-99); Non-African American GFR(CKD) >90 (>60 ml/min/1.73 sqM); Potassium 4.5 mmol/L (3.5-5.1); Sodium 140 mmol/L (137-145); Total Bilirubin 0.5 mg/dL (0.2-1.3); Total Protein 7.3 g/dL (6.3-8.2)
[2021-03-07 22:59] LABS: Chol/HDL Ratio 4.08; Cholesterol 261 mg/dL (0-200); LDL Cholesterol,Calculated 177.6 mg/dL (0.0-131.0)
== END | disposition home or self-care (01) ==
LOC: LAB 08:34
PROVIDERS: ATTEND Family Medicine
DX: E03.9 Hypothyroidism, unspecified (principal); E78.00 Pure hypercholesterolemia, unspecified; E55.9 Vitamin D deficiency, unspecified
CPT/HCPCS: 80053; 80061; 82306; 84443; 85025

== ENCOUNTER → 2021-03-07 | Outpatient (CLI) | payer MEDICARE ==
--- NOTE | 2021-03-11 13:42 | MM ---
Reason for exam: screening (asymptomatic). Last mammogram was performed 3 years ago. History: Patient is postmenopausal and has history of other cancer at age 64. Physical Findings: A clinical breast exam by your physician is recommended on an annual basis and results should be correlated with mammographic findings. MG 3D Screening Mammo W/Cad Bilateral CC and MLO view(s) were taken. Prior study comparison: March 10, 2018, bilateral MG 3d screening mammo w/cad. June 23, 2016, bilateral MG 3d screening mammo w/cad. The breast tissue is heterogeneously dense. This may lower the sensitivity of mammography. There is chronic nodularity bilaterally. No significant changes when compared with prior studies. ASSESSMENT: Benign, BI-RAD 2 RECOMMENDATION: Routine screening mammogram of both breasts in 1 year.
== END | disposition home or self-care (01) ==
LOC: RADMAMWWP 08:09
PROVIDERS: ATTEND Family Medicine
DX: Z12.31 Encounter for screening mammogram for malignant neoplasm of breast (principal); Z85.3 Personal history of malignant neoplasm of breast; Z78.0 Asymptomatic menopausal state
CPT/HCPCS: 77063; 77067

== ENCOUNTER → 2021-07-07 | Outpatient (CLI) | payer MEDICARE ==
[2021-07-07 19:28] LABS: ALT 18 U/L (8-44); AST 19 U/L (13-35); Chol/HDL Ratio 3.82 Ratio; Creatine Kinase 109 U/L (26-186)
== END | disposition home or self-care (01) ==
LOC: LABWHC1 09:03
PROVIDERS: ATTEND Family Medicine
DX: E78.00 Pure hypercholesterolemia, unspecified (principal)
CPT/HCPCS: 36415; 80061; 82550; 84450; 84460

== ENCOUNTER → 2022-02-04 | Outpatient (CLI) | payer MEDICARE ==
[2022-02-04 15:50] LABS: Basophils # (A) 0.07 X 10*3/uL (0.00-0.10); Eosinophils # (A) 0.22 X 10*3/uL (0.04-0.35); Eosinophils % (A) 3.2 %; HCT 40.9 % (37.2-46.3); HGB 12.9 g/dL (12.0-15.0); Immature Grans, Automated 0.3 %; Lymphocytes # (A) 1.71 X 10*3/uL (0.90-5.00); Lymphocytes % (A) 24.8 %; MCH 30.1 pg (27.0-32.0); MCHC 31.5 g/dL (32.0-37.0); MCV 95.6 fL (80.0-97.0); Monocytes # (A) 0.61 X 10*3/uL (0.20-1.00); Monocytes % (A) 8.9 %; NRBC Per 100 WBC 0 /100 WBCS (0.0-0.0); Neutrophils # (A) 4.26 X 10*3/uL (1.80-7.70); Neutrophils % (A) 61.8 %; Platelet Count 270 X 10*3/uL (140-440); RBC 4.28 X 10*6/uL (4.10-5.20); RDW 14.5 % (11.5-14.5); WBC 6.89 X 10*3/uL (4.50-10.00)
[2022-02-04 16:21] LABS: ALT 17 U/L (8-44); AST 23 U/L (13-35); Albumin 4.4 g/dL (3.8-4.9); Albumin/Globulin Ratio 1.76 (1.60-3.17); Alkaline Phosphatase 61 U/L (41-126); BUN/Creat Ratio 32.66 Ratio (12.00-20.00); Blood Urea Nitrogen 22.7 mg/dL (9.0-27.0); Calcium 9.4 mg/dL (8.7-10.3); Chloride 104 mmol/L (96-109); Chol/HDL Ratio 3.79 Ratio; Globulin 2.5 g/dL (1.6-3.3); Glucose 81 mg/dL (70-110); LDL Cholesterol,Calculated 130.1 mg/dL (0.0-131.0); Potassium 4.6 mmol/L (3.5-5.5); Sodium 141 mmol/L (135-145); Total Protein 6.8 g/dL (6.2-8.2)
== END | disposition home or self-care (01) ==
LOC: LABWHC1 08:20
PROVIDERS: ATTEND Family Medicine
DX: E78.00 Pure hypercholesterolemia, unspecified (principal); E03.9 Hypothyroidism, unspecified; E55.9 Vitamin D deficiency, unspecified
CPT/HCPCS: 36415; 80053; 80061; 82306; 84443; 85025

== ENCOUNTER 2022-03-21 09:20 | Emergency (ER) | payer MEDICARE ==
[2022-03-21 09:29] VITALS: BP 150/97; PULSE 61; RESP 18; TEMP 97.7
[2022-03-21] MEDS ORDERED: DIPH,PERTUS(ACELL)TETVAC-LF 0.5 ML VIAL IM ONE (09:33)
[2022-03-21] MEDS ORDERED: IBUPROFEN 600 MG TAB PO STA (09:35)
[2022-03-21] MEDS ORDERED: LIDOCAINE 1% INJ 10MG/ML (5 ML VIAL-PF) SQ STA (09:35)
--- NOTE | 2022-03-21 09:37 | ED ---
General Adult HPI - General Chief complaint: Skin/Abscess/Foreign Body Stated complaint: Object stuck in finger Time Seen by Provider: 03/21/22 09:30 Source: patient, family, RN notes reviewed Mode of arrival: ambulatory Limitations: no limitations - History of Present Illness Initial comments: 71-year-old female presents to the emergency room for a foreign body left second digit. Patient states she was trying to shoot a squirrel with a BB this morning and neck done only shot her finger. States it is very superficially embedded in the finger. Denies any difficulty flexing or extending her finger. Patient is not up-to-date on tetanus. She did not take anything for pain prior to arrival.Patient has no other complaints at this time including shortness of breath, chest pain, abdominal pain, nausea or vomiting, headache, or visual changes. - Related Data Home Medications Medication Instructions Recorded Confirmed Cyanocobalamin [Vitamin B-12] 1,000 mcg PO DAILY 12/24/14 08/27/20 Multivitamins, Thera [Multivitamin 1 tab PO DAILY 12/24/14 08/27/20 (formulary)] Omeprazole [PriLOSEC] 40 mg PO HS 12/24/14 08/27/20 Levothyroxine Sodium [Synthroid] 112 mcg PO DAILY 09/09/16 08/27/20 Magnesium 400 mg PO DAILY 07/02/17 08/27/20 Cholecalciferol [Vitamin D3 (25 2,000 unit PO BID 05/08/20 08/27/20 Mcg = 1000 Iu)] Ascorbic Acid [Vitamin C] 500 mg PO BID 08/27/20 08/27/20 L.acidoph,Marlene, B.lactis 1 each PO DAILY 08/27/20 08/27/20 [Probiotic] Turmeric Root Extract [Turmeric] 1,000 mg PO DAILY 08/27/20 08/27/20 Ubidecarenone [Co Q-10] 100 mg PO DAILY 08/27/20 08/27/20 Vitamin E (Dl,Tocopheryl Acet) 400 unit PO DAILY 08/27/20 08/27/20 [Vitamin E] Zinc 50 mg PO DAILY 08/27/20 08/27/20 diphenhydrAMINE [Benadryl] 12.5 mg PO HS PRN 08/27/20 08/27/20 Previous Rx's Medication Instructions Recorded Cephalexin [Keflex] 500 mg PO QID 5 Days #20 cap 03/21/22 Allergies Allergy/AdvReac Type Severity Reaction Status Date / Time adhesive AdvReac Unknown RED Verified 03/21/22 09:29 IRRITATED SKIN Review of Systems ROS Statement: Those systems with pertinent positive or pertinent negative responses have been documented in the HPI. ROS Other: All systems not noted in ROS Statement are negative. Past Medical History Past Medical History: GERD/Reflux, Thyroid Disorder Additional Past Medical History / Comment(s): HEART MURMUR, THYROID NODULES . thyroid CA, gastric sleeve History of Any Multi-Drug Resistant Organisms: None Reported Past Surgical History: Adenoidectomy, Bariatric Surgery, Hernia Repair, Hysterectomy, Tonsillectomy Additional Past Surgical History / Comment(s): T & A AND UMBILICAL HERNIA REPAIR A CHILD, HYSTERECTOMY, GASTRIC SLEEVE JUL 2013.thyroidectomy PANNILECTOMY Past Anesthesia/Blood Transfusion Reactions: Family History of Problems w/ Anesthesia, Postoperative Nausea & Vomiting (PONV) Additional Past Anesthesia/Blood Transfusion Reaction / Comment(s): MOTHER AND DAUGHTER ALSO HAVE PONV Past Psychological History: No Psychological Hx Reported Past Alcohol Use History: None Reported - Past Family History Sister(s) Family Medical History: GERD/Reflux Father Family Medical History: Cancer Additional Family Medical History / Comment(s): BLADDER CANCER General Exam Limitations: no limitations General appearance: alert, in no apparent distress Head exam: Present: atraumatic Eye exam: Present: normal appearance, PERRL, EOMI. Absent: scleral icterus, conjunctival injection ENT exam: Present: normal exam, mucous membranes moist Neck exam: Present: normal inspection, full ROM. Absent: tenderness Extremities exam: Present: other (Patient has small 2mm x 2 mm superficial foreign body palpated along the dorsal medial aspect of the middle phalanx of the left second digit.) Neurological exam: Present: alert Course Vital Signs 03/21/22 09:25 Temperature 97.7 F Pulse Rate 61 Respiratory 18 Rate Blood Pressure 150/97 O2 Sat by Pulse 100 Oximetry Procedures - Forgein Body Removal Soft Tissue Consent Obtained: verbal consent Site: hand Anesthetic Used: lidocaine 1% Amount (mLs): 1 Foreign Body Suspected: Metal Foreign Body Removed: yes Foreign Body Removal Technique: Other (incision, pressure) Patient Tolerated Procedure: well, no complications Medical Decision Making - Medical Decision Making Tetanus is updated. X-ray reveals a radiopaque foreign body within the lateral mid left index finger. This is very superficial. A small incision was made using a 15 blade and 11 blade scalpel and the BB was easily removed. Patient had full range of motion after procedure. We will give her a few days of antibiotics. At one suture was loosely applied, she will return to have this removed in 7-10 days. She will return for any worsening symptoms or signs of infection which were discussed with her. Disposition Clinical Impression: Foreign body (FB) in soft tissue Disposition: HOME SELF-CARE Condition: Good Instructions (If sedation given, give patient instructions): Soft Tissue Foreign Body (ED) Additional Instructions: Take antibiotic as directed and monitor for signs of infection. Return to the ER to have suture removed in 7-10 days. Follow-up with primary care. Prescriptions: Cephalexin [Keflex] 500 mg PO QID 5 Days #20 cap Is patient prescribed a controlled substance at d/c from ED?: No Referrals: Marcus Sarmiento MD [Primary Care Provider] - 1-2 days Time of Disposition: 10:12
--- NOTE | 2022-03-21 09:58 | XR ---
EXAMINATION TYPE: XR finger LT DATE OF EXAM: 03/21/2022 COMPARISON: 09/08/2012 HISTORY: Foreign-body TECHNIQUE: Three-view left index finger FINDINGS: There is a BB within the lateral aspect of the middle and index finger adjacent to the diap hysis of the middle phalanx. No acute osseous abnormality is evident. Follow-up can be performed as clinically indicated. IMPRESSION: 1. Radiopaque foreign body within the lateral mid left index finger.
== END 2022-03-21 10:21 | disposition home or self-care (01) ==
LOC: EC 09:20
DX: S60.451A Superficial foreign body of left index finger, initial encounter (principal); K21.9 Gastro-esophageal reflux disease without esophagitis; E07.9 Disorder of thyroid, unspecified; Z91.09 Other allergy status, other than to drugs and biological substances; Z79.899 Other long term (current) drug therapy; Z79.890 Hormone replacement therapy; Z23 Encounter for immunization; W45.8XXA Other foreign body or object entering through skin, initial encounter
CPT/HCPCS: 73140; 90715; 99283; 10120; 90471; J2001

== ENCOUNTER → 2022-05-11 | Outpatient (CLI) | payer MEDICARE ==
[2022-05-11 14:33] LABS: Chol/HDL Ratio 4.17 Ratio; Creatine Kinase 151 U/L (26-186); LDL Cholesterol,Calculated 131.7 mg/dL (0.0-131.0)
[2022-05-11 14:59] LABS: ALT 18 U/L (8-44); AST 33 U/L (13-35)
== END | disposition home or self-care (01) ==
LOC: LABWHC1 08:48
PROVIDERS: ATTEND Family Medicine
DX: E78.00 Pure hypercholesterolemia, unspecified (principal)
CPT/HCPCS: 36415; 80061; 82550; 84450; 84460

== ENCOUNTER → 2022-05-25 | Outpatient (CLI) | payer MEDICARE ==
--- NOTE | 2022-05-25 10:38 | MM ---
Reason for Exam: Screening (asymptomatic). Last mammogram was performed 1 year(s) and 3 month(s) ago. Patient History: Menarche at age 14. First Full-Term at age 20. Right ovary removed at age 43. Hysterectomy at age 43. Postmenopausal. Other cancer, age 64. Risk Values: Scarlet 5 year model risk: 1.2%. NCI Lifetime model risk: 3.7%. Prior Study Comparison: 06/23/2016 Bilateral Screening Mammogram, [facility]. 03/10/2018 Bilateral Screening Mammogram, [facility]. 03/07/2021 Bilateral Screening Mammogram, [facility]. Tissue Density: The breast tissue is heterogeneously dense. This may lower the sensitivity of mammography. Findings: Analyzed By CAD. Scattered small benign-appearing round calcifications bilaterally are redemonstrated. Stable scattered small benign-appearing round masses throughout the bilateral breasts. Benign-appearing bilateral axillary lymph nodes are again seen. There is no suspicious new group of microcalcifications or new suspicious mass in either breast. Overall Assessment: Benign, BI-RAD 2 Management: Screening Mammogram of both breasts in 1 year. A clinical breast exam by your physician is recommended on an annual basis and results should be correlated with mammographic findings. Electronically signed and approved by: Giuseppe Cheng M.D.
== END | disposition home or self-care (01) ==
LOC: RADMAMWWP 09:53
PROVIDERS: ATTEND Family Medicine
DX: Z12.31 Encounter for screening mammogram for malignant neoplasm of breast (principal); Z78.0 Asymptomatic menopausal state
CPT/HCPCS: 77063; 77067

== ENCOUNTER → 2022-08-03 | Outpatient (CLI) | payer MEDICARE ==
[2022-08-03 15:26] LABS: ALT 17 U/L (8-44); AST 23 U/L (13-35); Chol/HDL Ratio 3.39 Ratio; Creatine Kinase 132 U/L (26-186); LDL Cholesterol,Calculated 110.3 mg/dL (0.0-131.0)
== END | disposition home or self-care (01) ==
LOC: LABWHC1 08:43
PROVIDERS: ATTEND Family Medicine
DX: E78.00 Pure hypercholesterolemia, unspecified (principal)
CPT/HCPCS: 36415; 80061; 82550; 84450; 84460

== ENCOUNTER → 2022-11-09 | Outpatient (CLI) | payer MEDICARE ==
[2022-11-09 16:09] LABS: Chol/HDL Ratio 4.28 Ratio; LDL Cholesterol,Calculated 140.8 mg/dL (0.0-131.0)
== END | disposition home or self-care (01) ==
LOC: LABWHC1 07:36
PROVIDERS: ATTEND Family Medicine
DX: E78.00 Pure hypercholesterolemia, unspecified (principal)
CPT/HCPCS: 36415; 80061

== ENCOUNTER → 2023-01-29 | Outpatient (CLI) | payer MEDICARE ==
[2023-01-29 15:54] LABS: LDL Cholesterol,Calculated 167.6 mg/dL (0.0-131.0)
== END | disposition home or self-care (01) ==
LOC: LABWHC1 09:02
PROVIDERS: ATTEND Family Medicine
DX: E78.00 Pure hypercholesterolemia, unspecified (principal)
CPT/HCPCS: 36415; 80061

== ENCOUNTER → 2023-03-31 | Outpatient (CLI) | payer MEDICARE ==
--- NOTE | 2023-03-31 16:30 | XR ---
EXAMINATION TYPE: XR hand complete LT DATE OF EXAM: 03/31/2023 4:05 PM INDICATION: Patient age:Female; 72 years old; Reason for study: M79.642; [facility]. COMPARISON: Left finger radiograph 03/21/2022 TECHNIQUE: Frontal, lateral and oblique views of the left hand were obtained. FINDINGS: Normal alignment of the visualized joints. No acute osseous pathology is identified. No e vidence of soft tissue swelling. No radiopaque foreign body identified. IMPRESSION: No acute osseous pathology.
== END | disposition home or self-care (01) ==
LOC: RADXRMAIN 15:55
PROVIDERS: ATTEND Family Medicine
DX: S69.92XA Unspecified injury of left wrist, hand and finger(s), initial encounter (principal); M25.542 Pain in joints of left hand

== ENCOUNTER → 2023-06-24 | Outpatient (CLI) | payer MEDICARE ==
--- NOTE | 2023-06-25 08:30 | MM ---
Reason for Exam: Screening (asymptomatic). Last mammogram was performed 1 year(s) and 1 month(s) ago. Patient History: Menarche at age 14. First Full-Term at age 20. Right ovary removed at age 43. Hysterectomy at age 43. Postmenopausal. Other cancer, age 64. Risk Values: Scarlet 5 year model risk: 1.3%. NCI Lifetime model risk: 3.5%. Prior Study Comparison: 03/10/2018 Bilateral Screening Mammogram, [facility]. 03/07/2021 Bilateral Screening Mammogram, [facility]. 05/25/2022 Bilateral MG 3D screening mammo w/cad, [facility]. Tissue Density: There are scattered fibroglandular densities. Findings: Analyzed By CAD. Pattern appears symmetrical and stable. No significant interval change is evident. There is a rounded density with partially obscured margins within the right breast. Couple small nodules in the posterior left breast. Benign spherical calcifications within the left breast. There are scattered punctate calcifications bilaterally. No suspicious groups of microcalcifications, spiculated or lobular masses, architectural distortion or other secondary signs of malignancy are mammographically apparent. Overall Assessment: Benign, BI-RAD 2 Management: Screening Mammogram of both breasts in 1 year. A negative mammogram report should not preclude additional follow up of suspicious palpable abnormalities. Patient should continue monthly self breast exam. A clinical breast exam by your physician is recommended on an annual basis and results should be correlated with mammographic findings. Electronically signed and approved by: Dada George D.O. Radiologis
== END | disposition home or self-care (01) ==
LOC: RADMAMWWP 08:53
PROVIDERS: ATTEND Family Medicine
DX: Z12.31 Encounter for screening mammogram for malignant neoplasm of breast (principal); Z78.0 Asymptomatic menopausal state
CPT/HCPCS: 77063; 77067

== ENCOUNTER → 2023-11-04 | Outpatient (CLI) | payer MEDICARE ==
[2023-11-04 11:35] LABS: Basophils # (A) 0.07 X 10*3/uL (0.00-0.10); Basophils % (A) 0.8 %; Eosinophils # (A) 0.21 X 10*3/uL (0.04-0.35); Eosinophils % (A) 2.4 %; HCT 39.9 % (37.2-46.3); HGB 12.7 g/dL (12.0-15.0); Lymphocytes # (A) 2.63 X 10*3/uL (0.90-5.00); Lymphocytes % (A) 30.1 %; MCH 29.5 pg (27.0-32.0); MCHC 31.8 g/dL (32.0-37.0); MCV 92.8 FL (80.0-97.0); Mean Platelet Volume 10.2 FL (9.5-12.2); Monocytes # (A) 0.72 X 10*3/uL (0.20-1.00); Monocytes % (A) 8.2 %; NRBC Per 100 WBC 0 X 10*3/uL (0.00-0.01); Neutrophils # (A) 5.09 X 10*3/uL (1.80-7.70); Neutrophils % (A) 58.2 %; Platelet Count 281 X 10*3/uL (140-440); RDW 14.6 % (11.5-14.5); WBC 8.75 X 10*3/uL (4.50-10.00)
[2023-11-04 12:05] LABS: ALT 16 U/L (8-44); AST 26 U/L (13-35); Albumin 4.3 g/dL (3.8-4.9); Albumin/Globulin Ratio 1.54 Ratio (1.60-3.17); Alkaline Phosphatase 68 U/L (41-126); BUN/Creat Ratio 29.75 Ratio (12.00-20.00); Blood Urea Nitrogen 23.8 mg/dL (9.0-27.0); Calcium 9.3 mg/dL (8.7-10.3); Carbon Dioxide 24.6 mmol/L (21.6-31.8); Chloride 104 mmol/L (96-109); Chol/HDL Ratio 3.96 Ratio; Globulin 2.8 g/dL (1.6-3.3); Glucose 92 mg/dL (70-110); LDL Cholesterol,Calculated 171.1 mg/dL (0.0-131.0); Potassium 4.5 mmol/L (3.5-5.5); Sodium 141 mmol/L (135-145); Total Bilirubin 0.5 mg/dL (0.3-1.2); Total Protein 7.1 g/dL (6.2-8.2); VLDL Calculation 19.46 mg/dL (5.00-40.00)
== END | disposition home or self-care (01) ==
LOC: LABWHC1 07:18
PROVIDERS: ATTEND Internal Medicine Interventional Cardiology
DX: E78.00 Pure hypercholesterolemia, unspecified (principal); E55.9 Vitamin D deficiency, unspecified
CPT/HCPCS: 36415; 80053; 80061; 82306; 84443; 85025

== ENCOUNTER 2024-01-12 08:41 | Inpatient (IN) | payer MEDICARE ==
--- NOTE | 2024-01-12 09:23 | ED ---
General Adult HPI - General Chief complaint: Chest Pain Stated complaint: Chest Pains Time Seen by Provider: 01/12/24 09:07 Source: patient, family, RN notes reviewed Mode of arrival: ambulatory Limitations: no limitations - History of Present Illness Initial comments: Patient is a 73-year-old female presenting to the emergency department with concerns with chest discomfort. Onset of symptoms was yesterday. Symptoms resolved and returned around 7 AM this morning. Discomfort feels like burning in the sternal region. No associated dyspnea, nausea, or diaphoresis. No history of similar symptoms previously. No radiation. No calf pain. No leg s welling. - Related Data Home Medications Medication Instructions Recorded Confirmed Cyanocobalamin [Vitamin B-12] 1,000 mcg PO DAILY 12/24/14 08/27/20 Multivitamins, Thera [Multivitamin 1 tab PO DAILY 12/24/14 08/27/20 (formulary)] Omeprazole [PriLOSEC] 40 mg PO HS 12/24/14 08/27/20 Levothyroxine Sodium [Synthroid] 112 mcg PO DAILY 09/09/16 08/27/20 Magnesium 400 mg PO DAILY 07/02/17 08/27/20 Cholecalciferol [Vitamin D3 (25 2,000 unit PO BID 05/08/20 08/27/20 Mcg = 1000 Iu)] Ascorbic Acid [Vitamin C] 500 mg PO BID 08/27/20 08/27/20 L.acidoph,Paracasei, B.lactis 1 each PO DAILY 08/27/20 08/27/20 [Probiotic] Turmeric Root Extract [Turmeric] 1,000 mg PO DAILY 08/27/20 08/27/20 Ubidecarenone [Co Q-10] 100 mg PO DAILY 08/27/20 08/27/20 Vitamin E (Dl,Tocopheryl Acet) 400 unit PO DAILY 08/27/20 08/27/20 [Vitamin E] Zinc 50 mg PO DAILY 08/27/20 08/27/20 diphenhydrAMINE [Benadryl] 12.5 mg PO HS PRN 08/27/20 08/27/20 Previous Rx's Medication Instructions Recorded Cephalexin [Keflex] 500 mg PO QID 5 Days #20 cap 03/21/22 Allergies Allergy/AdvReac Type Severity Reaction Status Date / Time adhesive AdvReac Unknown RED Verified 03/21/22 09:29 IRRITATED SKIN Review of Systems ROS Statement: Those systems with pertinent positive or pertinent negative responses have been documented in the HPI. ROS Other: All systems not noted in ROS Statement are negative. Constitutional: Denies: fever Eyes: Denies: eye pain ENT: Denies: ear pain Respiratory: Denies: cough, dyspnea Cardiovascular: Reports: as per HPI, chest pain Endocrine: Denies: fatigue Gastrointestinal: Denies: abdominal pain Genitourinary: Denies: dysuria Skin: Denies: rash Neurological: Denies: weakness Past Medical History Past Medical History: Cancer, GERD/Reflux, Thyroid Disorder Additional Past Medical History / Comment(s): HEART MURMUR, THYROID NODULES . thyroid CA, gastric sleeve History of Any Multi-Drug Resistant Organisms: None Reported Past Surgical History: Adenoidectomy, Bariatric Surgery, Hernia Repair, Hysterectomy, Tonsillectomy Additional Past Surgical History / Comment(s): T & A AND UMBILICAL HERNIA REPAIR A CHILD, HYSTERECTOMY, GASTRIC SLEEVE JUL 2013.thyroidectomy PANNILECTOMY Past Anesthesia/Blood Transfusion Reactions: Family History of Problems w/ Anesthesia, Postoperative Nausea & Vomiting (PONV) Additional Past Anesthesia/Blood Transfusion Reaction / Comment(s): MOTHER AND DAUGHTER ALSO HAVE PONV Past Psychological History: No Psychological Hx Reported Past Alcohol Use History: None Reported - Past Family History Sister(s) Family Medical History: GERD/Reflux Father Family Medical History: Cancer Additional Family Medical History / Comment(s): BLADDER CANCER General Exam Limitations: no limitations General appearance: alert, in no apparent distress Head exam: Present: normocephalic Eye exam: Present: normal appearance Neck exam: Present: normal inspection Respiratory exam: Present: normal lung sounds bilaterally Cardiovascular Exam: Present: regular rate, normal rhythm, normal heart sounds Expanded Peripheral pulses: 2+: Radial (R), Radial (L), Dorsalis Pedis (R), Dorsalis Pedis (L) GI/Abdominal exam: Present: soft. Absent: tenderness Extremities exam: Present: normal inspection. Absent: pedal edema, calf tenderness Neurological exam: Present: alert Psychiatric exam: Present: normal affect, normal mood Skin exam: Present: normal color Course Vital Signs 01/12/24 08:46 Temperature 97.9 F Pulse Rate 58 L Respiratory 16 Rate Blood Pressure 149/87 O2 Sat by Pulse 10 L Oximetry EKG Findings - EKG Results: EKG: interpreted by ERMD (Superior axis. Poor R wave progression. Nonspecific T waves. Nonspecific changes lead I), sinus rhythm EKG shows: bradycardia Medical Decision Making - Medical Decision Making Was pt. sent in by a medical professional or institution (, PA, STRIKE PLATE ATTACHER, urgent care, hospital, or halfway...) When possible be specific @ -No Did you speak to anyone other than the patient for history (EMS, parent, family, police, friend...)? What history was obtained from this source @ -Family is present and helps provide onset of symptom Did you review nursing and triage notes (agree or disagree)? Why? @ -I reviewed and agree with nursing and triage notes Were old charts reviewed (outside hosp., previous admission, EMS record, old EKG, old radiological studies, urgent care reports/EKG's, halfway records)? Report findings @ -No old charts were reviewed Differential Diagnosis (chest pain, altered mental status, abdominal pain women, abdominal pain men, vaginal bleeding, weakness, fever, dyspnea, syncope, headache, dizziness, GI bleed, back pain, seizure, CVA, palpatations, mental health, musculoskeletal)? @ -Differential Chest Pain: Stable Angina, Unstable Angina, STEMI, NSTEMI Aortic Dissection, Pneumothorax, Musculoskeletal, Esophageal Spasm GERD, Cholecystitis, Pancreatitis, Zoster, this is not meant to be an all-inclusive list. EKG interpreted by me (3pts min.). @ -As above X-rays interpreted by me (1pt min.). @ -Chest x-ray shows no acute CT interpreted by me (1pt min.). @ -None done U/S interpreted by me (1pt. min.). @ -None done What testing was considered but not performed or refused? (CT, X-rays, U/S, labs)? Why? @ -None What meds were considered but not given or refused? Why? @ -None Did you discuss the management of the patient with other professionals (professionals i.e. , PA, STRIKE PLATE ATTACHER, lab, RT, psych nurse, professor of social work, edge gluer, teacher, employment officer, outsole caser)? Give summary @ -Case discussed with Dr. Espinal who will admit covering Dr. Kut. Cardiology also discussed with Dr. Rudd will consult. Was smoking cessation discussed for >3mins.? @ -No Was critical care preformed (if so, how long)? @ -31 minutes critical care time Were there social determinants of health that impacted care today? How? (H omelessness, low income, unemployed, alcoholism, drug addiction, transportation, low edu. Level, literacy, decrease access to med. care, halfway, rehab)? @ -No Was there de-escalation of care discussed even if they declined (Discuss DNR or withdrawal of care, Hospice)? DNR status @ -No What co-morbidities impacted this encounter? (DM, HTN, Smoking, COPD, CAD, Cancer, CVA, ARF, Chemo, Hep., AIDS, mental health diagnosis, sleep apnea, morbid obesity)? @ -None Was patient admitted / discharged? Hospital course, mention meds given and route, prescriptions, significant lab abnormalities, going to OR and other pertinent info. @ -Patient and family are updated on results and plan. Patient will be admitted with cardiology consult. Admission orders. Heparin will be started. Undiagnosed new problem with uncertain prognosis? @ -No Drug Therapy requiring intensive monitoring for toxicity (Heparin, Nitro, Insulin, Cardizem)? @ -Heparin drip Were any procedures done? @ -No Diagnosis/symptom? @ -Non-ST elevation myocardial infarction Acute, or Chronic, or Acute on Chronic? @ -Acute Uncomplicated (without systemic symptoms) or Complicated (systemic symptoms)? @ -Default Side effects of treatment? @ -No Exacerbation, Progression, or Severe Exacerbation? @ -No Poses a threat to life or bodily function? How? (Chest pain, [place], [place], pneumonia, PE, COPD, DKA, ARF, appy, cholecystitis, CVA, Diverticulitis, Homicidal, Suicidal, threat to staff... and all critical care pts) @ -No - Lab Data Result diagrams: 01/12/24 09:11 01/12/24 09:11 Lab Results 01/12/24 01/12/24 01/12/24 Range/Units 09:11 09:11 09:11 WBC 9.2 (3.8-10.6) k/uL RBC 4.53 (3.80-5.40) m/uL Hgb 14.2 (11.4-16.0) gm/dL Hct 42.5 (34.0-46.0) % MCV 93.9 (80.0-100.0) fL MCH 31.4 (25.0-35.0) pg MCHC 33.4 (31.0-37.0) g/dL RDW 13.7 (11.5-15.5) % Plt Count 286 (150-450) k/uL MPV 8.3 Neutrophils % 68 % Lymphocytes % 23 % Monocytes % 5 % Eosinophils % 3 % Basophils % 1 % Neutrophils # 6.2 (1.3-7.7) k/uL Lymphocytes # 2.1 (1.0-4.8) k/uL Monocytes # 0.4 (0-1.0) k/uL Eosinophils # 0.3 (0-0.7) k/uL Basophils # 0.1 (0-0.2) k/uL PT 10.6 (10.0-12.5) sec INR 1.0 (<1.2) APTT 23.1 (22.0-30.0) sec Sodium 142 (137-145) mmol/L Potassium 4.7 (3.5-5.1) mmol/L Chloride 108 H (98-107) mmol/L Carbon Dioxide 24 (22-30) mmol/L Anion Gap 10 mmol/L BUN 23 H (7-17) mg/dL Creatinine 0.63 (0.52-1.04) mg/dL Est GFR (CKD-EPI)AfAm >90 (>60 ml/min/1.73 sqM) Est GFR (CKD-EPI)NonAf 90 (>60 ml/min/1.73 sqM) Glucose 96 (74-99) mg/dL Calcium 8.9 (8.4-10.2) mg/dL Magnesium 2.1 (1.6-2.3) mg/dL Total Bilirubin 0.8 (0.2-1.3) mg/dL AST 61 H (14-36) U/L ALT 22 (4-34) U/L Alkaline Phosphatase 63 (38-126) U/L Troponin I (0.000-0.034) ng/mL Total Protein 7.4 (6.3-8.2) g/dL Albumin 4.3 (3.5-5.0) g/dL 01/12/24 Range/Units 09:11 WBC (3.8-10.6) k/uL RBC (3.80-5.40) m/uL Hgb (11.4-16.0) gm/dL Hct (34.0-46.0) % MCV (80.0-100.0) fL MCH (25.0-35.0) pg MCHC (31.0-37.0) g/dL RDW (11.5-15.5) % Plt Count (150-450) k/uL MPV Neutrophils % % Lymphocytes % % Monocytes % % Eosinophils % % Basophils % % Neutrophils # (1.3-7.7) k/uL Lymphocytes # (1.0-4.8) k/uL Monocytes # (0-1.0) k/uL Eosinophils # (0-0.7) k/uL Basophils # (0-0.2) k/uL PT (10.0-12.5) sec INR (<1.2) APTT (22.0-30.0) sec Sodium (137-145) mmol/L Potassium (3.5-5.1) mmol/L Chloride (98-107) mmol/L Carbon Dioxide (22-30) mmol/L Anion Gap mmol/L BUN (7-17) mg/dL Creatinine (0.52-1.04) mg/dL Est GFR (CKD-EPI)AfAm (>60 ml/min/1.73 sqM) Est GFR (CKD-EPI)NonAf (>60 ml/min/1.73 sqM) Glucose (74-99) mg/dL Calcium (8.4-10.2) mg/dL Magnesium (1.6-2.3) mg/dL Total Bilirubin (0.2-1.3) mg/dL AST (14-36) U/L ALT (4-34) U/L Alkaline Phosphatase (38-126) U/L Troponin I 2.040 H* (0.000-0.034) ng/mL Total Protein (6.3-8.2) g/dL Albumin (3.5-5.0) g/dL Critical Care Time Critical Care Time: Yes Disposition Clinical Impression: Acute non-ST elevation myocardial infarction (NSTEMI) Disposition: ADMITTED IP TO THIS HOSP Condition: Serious Is patient prescribed a controlled substance at d/c from ED?: No Referrals: Marcus Sarmiento [Primary Care Provider] - 1-2 days Time of Disposition: 10:07
[2024-01-12 09:27] LABS: Basophils # (A) 0.1 k/uL (0-0.2); Basophils % (A) 1 %; Eosinophils # (A) 0.3 k/uL (0-0.7); Eosinophils % (A) 3 %; HCT 42.5 % (34.0-46.0); HGB 14.2 gm/dL (11.4-16.0); Lymphocytes # (A) 2.1 k/uL (1.0-4.8); Lymphocytes % (A) 23 %; MCH 31.4 pg (25.0-35.0); MCHC 33.4 g/dL (31.0-37.0); MCV 93.9 fL (80.0-100.0); Mean Platelet Volume 8.3; Monocytes # (A) 0.4 k/uL (0-1.0); Monocytes % (A) 5 %; Neutrophils # (A) 6.2 k/uL (1.3-7.7); Neutrophils % (A) 68 %; Platelet Count 286 k/uL (150-450); RBC 4.53 m/uL (3.80-5.40); RDW 13.7 % (11.5-15.5); WBC 9.2 k/uL (3.8-10.6)
[2024-01-12 09:37] LABS: ALT 22 U/L (4-34); African American GFR (CKD) >90 (>60 ml/min/1.73 sqM); Albumin 4.3 g/dL (3.5-5.0); Anion Gap 10 mmol/L; Blood Urea Nitrogen 23 mg/dL (7-17); Calcium 8.9 mg/dL (8.4-10.2); Carbon Dioxide 24 mmol/L (22-30); Chloride 108 mmol/L (98-107); Glucose 96 mg/dL (74-99); Non-African American GFR(CKD) 90 (>60 ml/min/1.73 sqM); Sodium 142 mmol/L (137-145); Total Bilirubin 0.8 mg/dL (0.2-1.3); Total Protein 7.4 g/dL (6.3-8.2)
[2024-01-12 09:44] LABS: Partial Thromboplastin Time 23.1 sec (22.0-30.0); Prothrombin Time 10.6 sec (10.0-12.5)
[2024-01-12 09:45] LABS: AST 61 U/L (14-36); Alkaline Phosphatase 63 U/L (38-126); Magnesium 2.1 mg/dL (1.6-2.3); Potassium 4.7 mmol/L (3.5-5.1)
[2024-01-12] MEDS: ASPIRIN 81 MG PO STA (10:11)
[2024-01-12] MEDS: NITROGLYCERIN SL TABS 0.4 MG TAB SUBLINGUAL STA (10:11)
[2024-01-12] MEDS: NITROGLYCERIN SL TABS 0.4 MG TAB SUBLINGUAL PRN (10:33)
--- NOTE | 2024-01-12 10:47 | XR ---
EXAMINATION TYPE: XR chest 2V DATE OF EXAM: 01/12/2024 9:22 AM CLINICAL INDICATION:Female, 73 years old with history of Chest Pain; [facility] COMPARISON: None TECHNIQUE: XR chest 2V Frontal and lateral views of the chest. FINDINGS: Lungs/Pleura: There is flattening of the diaphragm with increased lucency of the lungs. No evidence o f pneumothorax, pleural effusion or focal consolidation. Pulmonary vascularity: Unremarkable. Heart/mediastinum: Cardiomediastinal silhouette is unremarkable. Musculoskeletal: No acute osseous pathology. IMPRESSION: 1. No acute cardiopulmonary disease process. 2. COPD changes.
[2024-01-12] MEDS ORDERED: NITROGLYCERIN SL TABS 0.4 MG TAB SUBLINGUAL PRN ×2 (10:57→13:50)
[2024-01-12] MEDS ORDERED: ALPRAZolam 0.5 MG TAB PO PRN (10:57)
[2024-01-12] MEDS ORDERED: ALPRAZolam 0.25 MG TAB PO PRN (10:57)
[2024-01-12] MEDS: HEPARIN SODIUM 1,000 UN/ML (10ML VL) IV ONE (10:57)
[2024-01-12] MEDS: HEPARIN SOD,PORK IN 0.45% NACL 25,000 UNIT in 0.45% NACL 1 250ML.BAG IV SCH (10:59)
--- NOTE | 2024-01-12 11:05 | P.CRDCN ---
History of Present Illness Consult date: 01/12/24 Reason for Consult (text): NSTEMI History of present illness: History of present illness: This is a 73-year-old female patient of Dr. Anderson with past medical history of valvular heart disease with aortic stenosis and mitral regurgitation, dysli pidemia with statin intolerance and Zetia intolerance, gastroesophageal reflux disease. We have been asked to evaluate the patient for non-ST elevated myocardial infarction. Patient gives history that she was having constant midsternal chest pain that started yesterday and went on and off throughout the day. It did not seem to occur with strenuous activity but later she was doing yard work at her mother's home and in the heat and she was not feeling very well. She went home and she thought the pain was a stronger in the form of a dull ache. She took her omeprazole and then later took Nexium which seems to ease the pain. She was okay during the night but when she woke up this morning she started ambulating and the pain returned. Patient denies any radiation of the pain, no nausea or vomiting, no diaphoresis. Patient is seen today in the emergency center waiting for bed on the cardiac stepdown unit. EKG sinus rhythm with no acute ST changes. Chest x-ray: No acute process. COPD changes. Laboratory studies: WBC 9.2, hemoglobin 14.2. Sodium 142, potassium 4.7, BUN 23 and creatinine 0.73. Troponin 2.04. AST 61. Home cardiac medications: Fish oil 1 daily, magnesium 400 mg daily, also on levothyroxine. Echocardiogram performed in the office on 11/24/2023 revealed EF of 55 to 60%, moderate left ventricular hypertrophy. Mild mitral regurgitation. Mild tricuspid regurgitation. PASP normal at 34 mmHg. Dobutamine stress echocardiogram performed in the office on 11/09/2023 revealed excellent exercise tolerance. Normal electrocardiogram and echocardiogram and response to exercise. Review Of Systems: At the time of my exam: CONSTITUTIONAL: Denies fever or chills. HEENT: Denies blurred vision, vision changes, or eye pain. Denies hemoptysis CARDIOVASCULAR: Reports chest pain. Denies orthopnea. Denies PND. Denies palpitations RESPIRATORY: Denies shortness of breath. GASTROINTESTINAL: Denies abdominal pain. Denies nausea or vomiting. HEMATOLOGIC: Denies bleeding disorders. GENITOURINARY: Denies any blood in urine. SKIN: Denies pruitis. Denies rash. Physical examination: Gen: This is a 73-year-old female appears to be in no acute distress. VS: reviewed, blood pressure 134/77, heart rate 46, pulse ox 100% on room air. HEENT: Head is atraumatic, normocephalic. Pupils equal, round. Sclerae is anicteric. NECK: Supple. No JVD. LUNGS: Clear to auscultation. No wheezes or rhonchi. No intercostal retractions. HEART: Regular rate and rhythm. Systolic murmur. ABDOMEN: Soft No tenderness. EXTREMITIES: No pedal edema. No calf tenderness. NEUROLOGICAL: Patient is awake, alert and oriented x3. Assessment: Non-ST elevated myocardial infarction Dyslipidemia with statin intolerance and Zetia intolerance Valvular heart disease with aortic stenosis and mitral regurgitation Gastroesophageal reflux disease Plan: Resume patient's home cardiac medications Start patient on aspirin 81 mg daily Hold on statin as patient is intolerant Continue heparin drip To schedule patient for cardiac catheterization today with Dr. Anderson Obtain 2-D echocardiogram and Doppler study to assess cardiac structure and function Further recommendations to follow based upon clinical course Thank you kindly for this consultation. Nurse practitioner note has been reviewed, I agree with documented findings and plan of care. Patient was seen and examined. Past Medical History Past Medical History: Cancer, GERD/Reflux, Thyroid Disorder Additional Past Medical History / Comment(s): HEART MURMUR, THYROID NODULES . t hyroid CA, gastric sleeve History of Any Multi-Drug Resistant Organisms: None Reported Past Surgical History: Adenoidectomy, Bariatric Surgery, Hernia Repair, Hysterectomy, Tonsillectomy Additional Past Surgical History / Comment(s): T & A AND UMBILICAL HERNIA REPAIR A CHILD, HYSTERECTOMY, GASTRIC SLEEVE JUL 2013.thyroidectomy PANNILECTOMY Past Anesthesia/Blood Transfusion Reactions: Family History of Problems w/ Anesthesia, Postoperative Nausea & Vomiting (PONV) Additional Past Anesthesia/Blood Transfusion Reaction / Comment(s): MOTHER AND DAUGHTER ALSO HAVE PONV Past Psychological History: No Psychological Hx Reported Past Alcohol Use History: None Reported - Past Family History Sister(s) Family Medical History: GERD/Reflux Father Family Medical History: Cancer Additional Family Medical History / Comment(s): BLADDER CANCER Medications and Allergies Home Medications Medication Instructions Recorded Confirmed Type Multivitamins, Thera [Multivitamin 1 tab PO DAILY 12/24/14 08/27/20 History (formulary)] Omeprazole [PriLOSEC] 40 mg PO HS 12/24/14 08/27/20 History Levothyroxine Sodium [Synthroid] 112 mcg PO DAILY 09/09/16 08/27/20 History Magnesium 400 mg PO DAILY 07/02/17 08/27/20 History Ascorbic Acid [Vitamin C] 500 mg PO BID 08/27/20 08/27/20 History L.acidoph,Paracasei, B.lactis 1 each PO DAILY 08/27/20 08/27/20 History [Probiotic] Turmeric Root Extract [Turmeric] 1,000 mg PO DAILY 08/27/20 08/27/20 History Ubidecarenone [Co Q-10] 100 mg PO DAILY 08/27/20 08/27/20 History Vitamin E (Dl,Tocopheryl Acet) 400 unit PO DAILY 08/27/20 08/27/20 History [Vitamin E] Zinc 50 mg PO DAILY 08/27/20 08/27/20 History Calcium Carbonate [Calcium] 600 mg PO [id number] 01/12/24 01/12/24 History Allergies Allergy/AdvReac Type Severity Reaction Status Date / Time adhesive AdvReac Unknown RED Verified 01/12/24 10:50 IRRITATED SKIN Physical Exam Vitals: Vital Signs Temp Pulse Resp BP Pulse Ox 01/12/24 10:12 50 L 20 119/89 100 01/12/24 08:46 97.9 F 58 L 16 149/87 100 Intake and Output 01/11/24 01/12/24 01/12/24 22:59 06:59 14:59 Other: Weight 81.193 kg Results 01/12/24 09:11 01/12/24 09:11 Cardiac Enzymes 01/12/24 01/12/24 Range/Units 09:11 09:11 AST 61 H (14-36) U/L Troponin I 2.040 H* (0.000-0.034) ng/mL Coagulation 01/12/24 Range/Units 09:11 PT 10.6 (10.0-12.5) sec APTT 23.1 (22.0-30.0) sec CBC 01/12/24 Range/Units 09:11 WBC 9.2 (3.8-10.6) k/uL RBC 4.53 (3.80-5.40) m/uL Hgb 14.2 (11.4-16.0) gm/dL Hct 42.5 (34.0-46.0) % Plt Count 286 (150-450) k/uL Comprehensive Metabolic Panel 01/12/24 Range/Units 09:11 Sodium 142 (137-145) mmol/L Potassium 4.7 (3.5-5.1) mmol/L Chloride 108 H (98-107) mmol/L Carbon Dioxide 24 (22-30) mmol/L BUN 23 H (7-17) mg/dL Creatinine 0.63 (0.52-1.04) mg/dL Glucose 96 (74-99) mg/dL Calcium 8.9 (8.4-10.2) mg/dL AST 61 H (14-36) U/L ALT 22 (4-34) U/L Alkaline Phosphatase 63 (38-126) U/L Total Protein 7.4 (6.3-8.2) g/dL Albumin 4.3 (3.5-5.0) g/dL Current Medications Generic Name Dose Route Start Last Admin Trade Name Freq PRN Reason Stop Dose Admin Aspirin 325 mg 01/13/24 09:00 Aspirin 325 Mg Tab PO DAILY [facility] Heparin Sodium/Sodium Chloride 250 mls @ 9.743 mls/hr 01/12/24 10:15 25,000 unit/ Sodium Chloride IV .Q24H [facility] Protocol 12 UNITS/KG/HR Nitroglycerin 0.4 mg 01/12/24 10:07 Nitroglycerin Sl Tabs 0.4 Mg Tab SUBLINGUAL Q5M PRN Chest Pain Nitroglycerin 1 inch 01/12/24 12:00 Nitroglycerin Oint 1 Inch/Gm Packet TOPICAL Q6HR [facility] Intake and Output 01/11/24 01/12/24 01/12/24 22:59 06:59 14:59 Other: Weight 81.193 kg Patient Weight 01/13/24 06:59 Weight 81.193 kg 01/12/24 09:11 01/12/24 09:11
[2024-01-12] MEDS ORDERED: ACETAMINOPHEN TAB 500 MG TAB PO PRN (11:32)
[2024-01-12] MEDS: ASPIRIN 325 MG TAB PO STA (11:32)
[2024-01-12] MEDS: ATORVASTATIN 80 MG TAB PO STA (11:34)
[2024-01-12] MEDS: NITROGLYCERIN OINT 1 INCH/GM PACKET TOPICAL SCH (11:35)
[2024-01-12] MEDS: SODIUM CHLORIDE 0.9% 1,000 ML IV SCH (11:40)
[2024-01-12] MEDS ORDERED: diphenhydrAMINE 25 MG CAP PO PRN (11:43)
[2024-01-12] MEDS ORDERED: VERAPAMIL 2.5 MG/ML 2 ML AMP ONE (12:30)
[2024-01-12] MEDS ORDERED: HEPARIN SODIUM 1,000 UN/ML (10ML VL) ONE (12:30)
[2024-01-12] MEDS ORDERED: LIDOCAINE 1% INJ 10MG/ML (20 ML MDV) ONE (12:30)
[2024-01-12] MEDS ORDERED: fentaNYL (PF) 50 MCG/ML 2 ML AMP ONE (12:35)
[2024-01-12] MEDS: SODIUM CHLORIDE 0.9% 1,000 ML IV ONE (12:37)
[2024-01-12] MEDS: fentaNYL (PF) 50 MCG/ML 2 ML AMP IVP ONE (12:42)
[2024-01-12] MEDS: MIDAZOLAM 2 MG/2 ML VIAL IVP ONE (12:42)
[2024-01-12] MEDS: LIDOCAINE 1% INJ 10MG/ML (20 ML MDV) SQ ONE (12:45)
[2024-01-12] MEDS: VERAPAMIL SYRINGE (5 MG/10 ML) INTRAARTER ONE (12:45)
[2024-01-12] MEDS: NITROGLYCERIN SL TABS 0.4 MG TAB SUBLINGUAL ONE (13:02)
[2024-01-12] MEDS ORDERED: NITROGLYCERIN SL TABS 0.4 MG TAB SUBLINGUAL ONE (13:03)
[2024-01-12] MEDS: IOPAMIDOL-370 100ML BTL INJ ONE ×2 (13:22→13:46)
[2024-01-12] MEDS ORDERED: CLOPIDOGREL 75 MG TAB ONE (13:25)
[2024-01-12] MEDS: CLOPIDOGREL 75 MG TAB PO ONE (13:29)
[2024-01-12] MEDS: HEPARIN SODIUM 1,000 UN/ML (10ML VL) IVP ONE (13:29)
[2024-01-12] MEDS ORDERED: niCARdipine 25 MG/10 ML VIAL ONE (13:39)
[2024-01-12] MEDS: niCARdipine Syringe (1,000 mcg/10 mL) INTRACORON ONE (13:41)
[2024-01-12] MEDS: NITROGLYCERIN 1000MCG/10ML SYRINGE INTRACORON ONE (13:42)
[2024-01-12] MEDS ORDERED: ATROPINE SULFATE 0.1 MG/ML 10ML SYRINGE IV PRN (13:50)
[2024-01-12] MEDS ORDERED: ZOLPIDEM 5 MG TAB PO PRN (13:50)
[2024-01-12] MEDS ORDERED: RX INFO: IV CONTRAST WAS GIVEN 1 EACH MISC MISCELLANE PRN (13:50)
[2024-01-12] MEDS ORDERED: MAG HYDROX/AL HYDROX/SIMETH 30 ML CUP PO PRN (13:50)
--- NOTE | 2024-01-12 13:57 | P.PCN ---
Date of Procedure: 01/12/24 Operative Findings: CARDIAC CATHETERIZATION AND PERCUTANEOUS CORONARY INTERVENTION PERFORMING PHYSICIAN: Pepe Anderson MD, [facility] PROCEDURE PERFORMED: 1. Selective right and left coronary angiogram 2. Left heart catheterization 3. Successful stenting of first diagonal branch using 2.5 x 18 mm Xience STEVE with an excellent angiographic results with use of intravascular imaging 4. Ultrasound-guided access of the right radial artery 5. Selective right common femoral artery angiogram INDICATION: Acute non-ST elevation myocardial infarction COMPLICATION: None APPROACH: Right radial artery and right common femoral artery LEVEL OF SEDATION: Moderate with the sedation time off 63 minutes PROCEDURE DESCRIPTION: After obtaining informed consent the patient was brought to the cardiac Trade Economist. The right radial artery was cannulated using micropuncture technique under ultrasound guidance a micropuncture wire passed easily then I did give the patient 2 mg of verapamil intra-arterial. Selective left coronary angiogram was performed using JL 3.5 catheters with engaging the RCA from the right radial approach was unsuccessful because of tortuous right subclavian. After that I accessed the right common femoral artery using micropuncture technique and the micropuncture wire passed easily and I placed a 6 Gambian 11 cm sheath at the right common femoral artery. Attempting engaging the right coronary artery using JR4 was unsuccessful and using JR 3 5 was unsuccessful and using AL-1 was unsuccessful but finally was successful using Roman right catheter. Left heart catheterization was performed using the JR4 catheter which crossed the aortic valve and I did pullback across the valve After that I decided to intervene on the first diagonal branch of the LAD. After that I did engage the left main using JL 4 guiding catheter. I did wired the first diagonal branch using a whisper wire and I wired the LAD using a run- through wire. Predilatation was performed using 2.5 mm balloon after intravascular ultrasound was performed and showed a diameter around 2.5 mm. Subsequently I stented the first diagonal branch using 2.5 x 18 mm stent where the stent was positioned under fluoroscopy guidance and deployed under fluoroscopy guidance. Final angiogram was performed and showed an excellent angiographic results and the procedure was completed with no complication SELECTIVE CORONARY ANGIOGRAM: The right coronary artery: Large-caliber vessel and a dominant vessel with intermediate disease involving the ostial and proximal portion Left main: Has mild disease only The left circumflex: Large-caliber vessel and nondominant vessel. The LCx gives rise into an OM1 which has a lesion appears to be in the range of 50%. The left anterior descending artery: The LAD has mild to moderate diffuse disease. Gives rise into a first diagonal branch which is occluded is about 2.5 mm in diameter HEMODYNAMICS: The LVEDP was about 22 mmHg with no significant gradient across aortic valve CONCLUSION: Occluded first diagonal branch. I performed successful stenting of the first diagonal branch Intermediate disease involving the first obtuse marginal branch of the left circumflex Intermediate disease involving the ostial and proximal RCA POSTPROCEDURE MANAGEMENT: 1. Dual antiplatelet therapy using aspirin and Plavix for 12 month 2. Aggressive cholesterol control 3. Follow-up with the patient
[2024-01-12] MEDS: SODIUM CHLORIDE 0.9% 1,000 ML in EMPTY BAG 1 BAG IV SCH ×2 (14:00→15:24)
[2024-01-12] MEDS: ACETAMINOPHEN TAB 500 MG TAB PO PRN (16:31)
[2024-01-12] MEDS: LACTOBACILLUS ACIDOPHILUS/PECT 1 EACH CAPSULE PO SCH (20:31)
[2024-01-12] MEDS: PANTOPRAZOLE 40 MG TABLET PO SCH (20:31)
--- NOTE | 2024-01-12 22:02 | P.HPIM ---
History of Present Illness H&P Date: 01/12/24 PROCEDURE PERFORMED: 1. Selective right and left coronary angiogram 2. Left heart catheterization 3. Successful stenting of first diagonal branch using 2.5 x 18 mm Xience STEVE with an excellent angiographic results with use of intravascular imaging 4. Ultrasound-guided access of the right radial artery 5. Selective right common femoral artery angiogram Past Medical History Past Medical History: Cancer, GERD/Reflux, Thyroid Disorder Additional Past Medical History / Comment(s): HEART MURMUR, THYROID NODULES . thyroid CA, gastric sleeve History of Any Multi-Drug Resistant Organisms: None Reported Past Surgical History: Adenoidectomy, Bariatric Surgery, Hernia Repair, Hystere ctomy, Tonsillectomy Additional Past Surgical History / Comment(s): T & A AND UMBILICAL HERNIA REPAIR A CHILD, HYSTERECTOMY, GASTRIC SLEEVE JUL 2013.thyroidectomy PANNILECTOMY Past Anesthesia/Blood Transfusion Reactions: Family History of Problems w/ Anesthesia, Postoperative Nausea & Vomiting (PONV) Additional Past Anesthesia/Blood Transfusion Reaction / Comment(s): MOTHER AND DAUGHTER ALSO HAVE PONV Past Psychological History: No Psychological Hx Reported Smoking Status: Former smoker Past Alcohol Use History: None Reported Past Drug Use History: None Reported - Past Family History Sister(s) Family Medical History: GERD/Reflux Father Family Medical History: Cancer Additional Family Medical History / Comment(s): BLADDER CANCER Medications and Allergies Home Medications Medication Instructions Recorded Confirmed Type Multivitamins, Thera [Multivitamin 1 tab PO AC-BRKFST 12/24/14 01/12/24 History (formulary)] Omeprazole [PriLOSEC] 40 mg PO 12/24/14 01/12/24 History Levothyroxine Sodium [Synthroid] 112 mcg PO DAILY@0700 09/09/16 01/12/24 History Magnesium 400 mg PO AC-BRKFST 07/02/17 01/12/24 History Ascorbic Acid [Vitamin C] 500 mg PO AC-BRKFST 08/27/20 01/12/24 History L.acidoph,Paracasei, B.lactis 1 cap PO HS 08/27/20 01/12/24 History [Probiotic] Turmeric Root Extract [Turmeric] 1,053 mg PO AC-BRKFST 08/27/20 01/12/24 History Ubidecarenone [Co Q-10] 100 mg PO AC-BRKFST 08/27/20 01/12/24 History Vitamin E (Dl,Tocopheryl Acet) 400 unit PO AC-BRKFST 08/27/20 01/12/24 History [Vitamin E] Zinc 50 mg PO AC-BRKFST 08/27/20 01/12/24 History Acetaminophen/Diphenhydramine 1 tab PO HS PRN 01/12/24 01/12/24 History [Tylenol PM 500-25mg] Beet Root 1 cap PO AC-BRKFST 01/12/24 01/12/24 History Calcium Carbonate [Calcium] 600 mg PO AC-BRKFST 01/12/24 01/12/24 History Cholecalciferol (Vitamin D3) 75 mcg PO AC-BRKFST 01/12/24 01/12/24 History [Vitamin D3 (3000 Iu)] Fish Oil/Dha/Epa [Fish Oil 1,200 1 cap PO AC-BRKFST 01/12/24 01/12/24 History mg Fish Oil] Allergies Allergy/AdvReac Type Severity Reaction Status Date / Time adhesive AdvReac Unknown RED Verified 01/12/24 10:50 IRRITATED SKIN Physical Exam Vitals: Vital Signs Temp Pulse Pulse Pulse Resp BP BP 01/12/24 20:27 97.6 F 54 L 16 156/90 01/12/24 16:00 80 16 119/68 01/12/24 15:30 16 149/65 01/12/24 15:00 130/63 01/12/24 14:45 59 L 16 132/87 01/12/24 14:20 51 L 16 145/63 01/12/24 12:12 63 16 168/89 01/12/24 11:56 97.9 F 61 20 149/74 01/12/24 11:01 64 20 125/78 01/12/24 10:55 46 L 20 134/77 01/12/24 10:34 66 20 167/83 01/12/24 10:12 50 L 20 119/89 01/12/24 08:46 97.9 F 58 L 16 149/87 Pulse Ox 01/12/24 20:27 99 01/12/24 16:00 100 01/12/24 15:30 99 01/12/24 15:00 01/12/24 14:45 100 01/12/24 14:20 100 01/12/24 12:12 98 01/12/24 11:56 100 01/12/24 11:01 97 01/12/24 10:55 100 01/12/24 10:34 100 01/12/24 10:12 100 01/12/24 08:46 100 Intake and Output 01/12/24 01/12/24 01/12/24 06:59 14:59 22:59 Intake Total 350 656 Balance 350 656 Intake: IV 350 300 Sodium Chloride 0.9% 1, 300 000 ml @ 75 mls/hr IV . [id number] [facility] Rx#:[id number] Oral 356 Other: # Voids 2 Weight 81.193 kg Results CBC & Chem 7: 01/13/24 05:04 01/13/24 05:04 Labs: Abnormal Lab Results - Last 24 Hours (Table) 01/12/24 01/12/24 01/12/24 Range/Units 09:11 09:11 15:20 Chloride 108 H (98-107) mmol/L BUN 23 H (7-17) mg/dL AST 61 H (14-36) U/L Troponin I 2.040 H* 4.710 H* (0.000-0.034) ng/mL 01/12/24 Range/Units 17:29 Chloride (98-107) mmol/L BUN (7-17) mg/dL AST (14-36) U/L Troponin I 7.270 H* (0.000-0.034) ng/mL Thrombosis Risk Factor Assmnt - Choose All That Apply Each Risk Factor Represents 2 Points: Age 61-74 years Thrombosis Risk Factor Assessment Total Risk Factor Score: 2 Thrombosis Risk Factor Assessment Level: Low Risk
[2024-01-13 05:44] LABS: Mean Platelet Volume 7.9; Platelet Count 246 k/uL (150-450)
[2024-01-13 06:05] LABS: African American GFR (CKD) >90 (>60 ml/min/1.73 sqM); Anion Gap 4 mmol/L; Blood Urea Nitrogen 13 mg/dL (7-17); Calcium 8.8 mg/dL (8.4-10.2); Carbon Dioxide 25 mmol/L (22-30); Chloride 110 mmol/L (98-107); Glucose 105 mg/dL (74-99); Non-African American GFR(CKD) 89 (>60 ml/min/1.73 sqM); Potassium 4.2 mmol/L (3.5-5.1); Sodium 139 mmol/L (137-145)
[2024-01-13] MEDS: CHOLECALCIFEROL 25 MCG (1000 IU) TABLET PO SCH (06:51)
[2024-01-13] MEDS: MAGNESIUM OXIDE 400 MG TAB PO SCH (06:51)
[2024-01-13] MEDS: MULTIVITAMINS, THERA 1 EACH TAB PO SCH (06:51)
[2024-01-13] MEDS: CALCIUM CARBONATE 500 MG CHEWABLE PO SCH (06:51)
[2024-01-13] MEDS: ASCORBIC ACID 500 MG TAB PO SCH (06:51)
[2024-01-13] MEDS: ZINC SULFATE 220 MG CAP PO SCH (06:51)
[2024-01-13] MEDS: LEVOTHYROXINE 112 MCG TAB PO SCH (06:51)
[2024-01-13] MEDS: VITAMIN E (DL,TOCOPHERYL ACET) 400 UNIT (180 MG) CAP PO SCH (06:51)
[2024-01-13] MEDS ORDERED: HEPARIN SODIUM,PORCINE (1 ML) 2,500 UNIT in SODIUM CHLORIDE 0.9% 250 ML IRRIGATION PRN (07:00)
[2024-01-13] MEDS ORDERED: HEPARIN SODIUM,PORCINE 10,000 UNIT in SODIUM CHLORIDE 0.9% 1,000 ML IRRIGATION PRN (07:00)
[2024-01-13] MEDS ORDERED: BEET ROOT PO SCH (07:30)
[2024-01-13] MEDS ORDERED: TURMERIC ROOT EXTRACT 1053 MG PO SCH (07:30)
[2024-01-13] MEDS ORDERED: NON FORMULARY DRUG (Ubidecarenone [Co Q-10] 100 MG Capsule) PO SCH (07:30)
[2024-01-13] MEDS ORDERED: NON FORMULARY DRUG (Fish Oil/Dha/Epa [Fish Oil 1,200 Mg Fish Oil] 1 EACH Capsule) PO SCH (07:30)
[2024-01-13 08:51] LABS: Chol/HDL Ratio 4.23 Ratio; LDL Cholesterol,Calculated 154.5 mg/dL (0.0-131.0)
[2024-01-13] MEDS ORDERED: ASPIRIN 325 MG TAB PO SCH (09:00)
[2024-01-13] MEDS: CLOPIDOGREL 75 MG TAB PO SCH (09:25)
[2024-01-13] MEDS: ASPIRIN 81 MG PO SCH (09:25)
[2024-01-13 11:13] VITALS: RESP 18
[2024-01-13 13:10] VITALS: BP 134/85; PULSE 80; TEMP 97.6
--- NOTE | 2024-01-13 14:20 | CA ---
Transthoracic Echo Report Name: Monica Fowler Age: 73 Gender: F : 1950 Exam Date: 01/13/2024 11:08 Exam Location: Oral Echo Ht (in): 62 Wt (lb): 179 Ordering Physician: Uma Car Attending/Referring Phys: [id number], Joceline Hand Spring Repairer Kaci Greco RDCS Procedure CPT: Indications: LVF Cardiac Hx: Technical Quality: Fair Contrast 1: Total Dose (mL): Contrast 2: Total Dose (mL): MEASUREMENTS (Male / Female) Normal Values 2D ECHO LV Diastolic Diameter PLAX 4.5 cm 4.2 - 5.9 / 3.9 - 5.3 cm LV Systolic Diameter PLAX 2.9 cm IVS Diastolic Thickness 1.1 cm 0.6 - 1.0 / 0.6 - 0.9 cm LVPW Diastolic Thickness 1.2 cm 0.6 - 1.0 / 0.6 - 0.9 cm LV Relative Wall Thickness 0.5 RV Internal Dim ED PLAX 1.6 cm LVOT Diameter 1.8 cm LV Diastolic Volume MOD BP 49.6 cm??? 67 - 155 / 56 - 104 cm??? LV Systolic Volume MOD BP 18.8 cm??? 22 - 58 / 19 - 49 cm??? LV Ejection Fraction MOD BP 62.0 % >= 55 % LV Cardiac Index MOD BP 929.4 cm???/min???m??? LV Diastolic Volume MOD 4C 55.6 cm??? LV Systolic Volume MOD 4C 22.7 cm??? LV Ejection Fraction MOD 4C 59.2 % LV Cardiac Index MOD 4C 996.4 cm???/min???m??? LV Diastolic Length 4C 6.5 cm LV Systolic Length 4C 5.8 cm LV Diastolic Volume MOD 2C 44.4 cm??? LV Systolic Volume MOD 2C 16.0 cm??? LV Ejection Fraction MOD 2C 64.0 % LV Cardiac Index MOD 2C 858.5 cm???/min???m??? LV Diastolic Length 2C 6.5 cm LV Systolic Length 2C 5.7 cm M-MODE Aortic Root Diameter MM 3.1 cm LA Systolic Diameter MM 4.2 cm LA Ao Ratio MM 1.4 DOPPLER AV Peak Velocity 230.8 cm/s AV Peak Gradient 21.3 mmHg AV Mean Velocity 148.3 cm/s AV Mean Gradient 10.4 mmHg AV Velocity Time Integral 55.7 cm LVOT Peak Velocity 132.1 cm/s LVOT Peak Gradient 7.0 mmHg LVOT Velocity Time Integral 39.0 cm LVOT Stroke Volume 103.5 cm??? LVOT Stroke Volume Index 56.8 ml/m??? LVOT Cardiac Index 3129.6 cm???/min???m??? AV Area Cont Eq vti 1.9 cm??? AV Area Cont Eq pk 1.5 cm??? Mitral E Point Velocity 77.3 cm/s Mitral A Point Velocity 100.3 cm/s Mitral E to A Ratio 0.8 MV Deceleration Time 243.2 ms FINDINGS Left Ventricle Left ventricular ejection fraction is estimated at 55-60 %. Mildly increased septal wall thickness. Mildly increased posterior wall thickness. No obvious regional wall motion abnormalities. Left ventricular cavity size normal. Right Ventricle Normal right ventricular size and function. Right ventricular systolic pressure within normal limits. Right Atrium Normal right atrial size. Left Atrium Normal left atrial size. Mitral Valve Structurally normal mitral valve. Trace to mild mitral regurgitation. Aortic Valve Trileaflet aortic valve. Mild aortic stenosis with a peak gradient of 21 mmHg and a mean gradient of 10 mmHg. No aortic regurgitation. Thickened aortic valve. Tricuspid Valve Structurally normal tricuspid valve. Trace tricuspid regurgitation. Pulmonic Valve Structurally normal pulmonic valve. No pulmonic regurgitation. No pulmonic stenosis. Pericardium No pericardial or pleural effusion. Aorta CONCLUSIONS Left ventricular ejection fraction 55-60% Mildly increased left ventricular wall thickness Mild aortic stenosis Trace tricuspid regurgitation Previewed by: Dr. Clay Schmitt DO (Electronically Signed) Final Date: 13 Jan 2024 14:19
--- NOTE | 2024-01-13 14:55 | P.PN ---
Subjective Progress Note Date: 01/13/24 Reason for Consult (text): NSTEMI History of present illness: History of present illness: This is a 73-year-old female patient of Dr. Anderson with past medical history of valvular heart disease with aortic stenosis and mitral regurgitation, dyslipidemia with statin intolerance and Zetia intolerance, gastroesophageal reflux disease. We have been asked to evaluate the patient for non-ST elevated myocardial infarction. Patient gives history that she was having constant midsternal chest pain that started yesterday and went on and off throughout the day. It did not seem to occur with strenuous activity but later she was doing yard work at her mother's home and in the heat and she was not feeling very well. She went home and she thought the pain was a stronger in the form of a dull ache. She took her omeprazole and then later took Nexium which seems to ease the pain. She was okay during the night but when she woke up this morning she started ambulating and the pain returned. Patient denies any radiation of the pain, no nausea or vomiting, no diaphoresis. Patient is seen today in the emergency center waiting for bed on the cardiac stepdown unit. EKG sinus rhythm with no acute ST changes. Chest x-ray: No acute process. COPD changes. Laboratory studies: WBC 9.2, hemoglobin 14.2. Sodium 142, potassium 4.7, BUN 23 and creatinine 0.73. Troponin 2.04. AST 61. Home cardiac medications: Fish oil 1 daily, magnesium 400 mg daily, also on levothyroxine. Echocardiogram performed in the office on 11/24/2023 revealed EF of 55 to 60%, moderate left ventricular hypertrophy. Mild mitral regurgitation. Mild tricuspid regurgitation. PASP normal at 34 mmHg. Dobutamine stress echocardiogram performed in the office on 11/09/2023 revealed excellent exercise tolerance. Normal electrocardiogram and echocardiogram and response to exercise. 01/12 Yesterday, patient underwent cardiac catheterization with Dr. Anderson which revealed occluded first diagonal branch status post stenting of the first diagonal branch. Also intermediate disease involving the first obtuse marginal branch of the left circumflex and intermediate disease involving the ostial and proximal RCA. Patient denies having any chest pain or shortness of breath. Blood pressure 134/85, heart rate 80, pulse ox 90% on room air. Repeat blood work reveals BUN 13 creatinine 0.65. Echocardiogram reveals EF of 55 to 60%, mild aortic stenosis, trace tricuspid regurgitation. Physical examination: Gen: This is a 73-year-old female appears to be in no acute distress. VS: reviewed HEENT: Head is atraumatic, normocephalic. Pupils equal, round. Sclerae is anicteric. NECK: Supple. No JVD. LUNGS: Clear to auscultation. No wheezes or rhonchi. No intercostal retractions. HEART: Regular rate and rhythm. Systolic murmur. ABDOMEN: Soft No tenderness. EXTREMITIES: No pedal edema. No calf tenderness. NEUROLOGICAL: Patient is awake, alert and oriented x3. Assessment: Non-ST elevated myocardial infarction Dyslipidemia with statin intolerance and Zetia intolerance Valvular heart disease with aortic stenosis and mitral regurgitation Gastroesophageal reflux disease Plan: Continue current cardiac medications Patient is cleared for discharge from cardiology and may follow-up with Dr. Anderson in 1 week. Nurse practitioner note has been reviewed, I agree with documented findings and plan of care. Patient was seen and examined. Objective - Vital Signs Vital signs: Vital Signs Temp 98.0 F 01/13/24 04:11 Pulse 61 01/13/24 04:11 Resp 16 01/13/24 04:11 BP 148/89 01/13/24 04:11 Pulse Ox 100 01/13/24 04:11 FiO2 Intake & Output 01/12/24 01/13/24 01/13/24 18:59 06:59 18:59 Intake Total 1006 118 Balance 1006 118 Weight 81.193 kg 80.4 kg Intake: IV 650 Sodium Chloride 0.9% 1, 300 000 ml @ 75 mls/hr IV . [id number] [facility] Rx#:[id number] Oral 356 118 Other: Voiding Method Toilet # Voids 2 1 - Labs CBC & Chem 7: 01/13/24 05:04 01/13/24 05:04 Labs: Abnormal Lab Results - Last 24 Hours (Table) 01/12/24 01/12/24 01/13/24 Range/Units 15:20 17:29 05:04 Chloride 110 H (98-107) mmol/L Glucose 105 H (74-99) mg/dL Troponin I 4.710 H* 7.270 H* (0.000-0.034) ng/mL Cholesterol 232.00 H (0.00-200.00) mg/dL LDL Cholesterol, Calc 154.5 H (0.0-131.0) mg/dL
[2024-01-13 15:58] VITALS: BMI 32.4
[2024-01-13] MEDS ORDERED: ATORVASTATIN 40 MG TAB PO SCH (21:00)
== END 2024-01-13 17:51 | disposition home or self-care (01) | DRG 322 ==
LOC: EC 08:41 → 3SCARD 10:08
PROVIDERS: ADMIT Internal Medicine; ATTEND Internal Medicine
PROC: 4A023N7 Measurement of Cardiac Sampling and Pressure, Left Heart, Percutaneous Approach (ICD-10-PCS; principal; 2024-01-12 11:35)
PROC: B240ZZ3 Ultrasonography of Single Coronary Artery, Intravascular (ICD-10-PCS; principal; 2024-01-12 11:35)
PROC: B2111ZZ Fluoroscopy of Multiple Coronary Arteries using Low Osmolar Contrast (ICD-10-PCS; principal; 2024-01-12 11:35)
PROC: 027034Z Dilation of Coronary Artery, One Artery with Drug-eluting Intraluminal Device, Percutaneous Approach (ICD-10-PCS; principal; 2024-01-12 11:35)
DX: I21.4 Non-ST elevation (NSTEMI) myocardial infarction (principal); I25.10 Atherosclerotic heart disease of native coronary artery without angina pectoris; I08.3 Combined rheumatic disorders of mitral, aortic and tricuspid valves; J44.9 Chronic obstructive pulmonary disease, unspecified; K21.9 Gastro-esophageal reflux disease without esophagitis; E78.5 Hyperlipidemia, unspecified; E89.0 Postprocedural hypothyroidism; Z79.890 Hormone replacement therapy; Z85.850 Personal history of malignant neoplasm of thyroid; Z98.84 Bariatric surgery status; Z79.899 Other long term (current) drug therapy
CPT/HCPCS: 36415; 71046; 76937; 80048; 80053; 80061; 83735; 84484; 85025; 85049; 85610; 85730; 92978; 93005; 93306; 93458; 96365; 99291

== ENCOUNTER → 2024-01-26 | Outpatient (CLI) | payer MEDICARE ==
--- NOTE | 2024-01-26 16:06 | US ---
EXAMINATION TYPE: US venous doppler duplex LE RT DATE OF EXAM: 01/26/2024 2:21 PM COMPARISON: NONE CLINICAL INDICATION: Female, 73 years old with history of R60.0 EDEMA ; SIDE PERFORMED: Right TECHNIQUE: The lower extremity deep venous system is examined utilizing real time linear array sonog alphonse with graded compression, doppler sonography and color-flow sonography. VESSELS IMAGED: Common Femoral Vein Deep Femoral Vein Greater Saphenous Vein * Femoral Vein Popliteal Vein Small Saphenous Vein * Proximal Calf Veins (* superficial vessels) Right Leg: Negative for DVT IMPRESSION: Grayscale, color doppler, spectral doppler imaging performed of the deep veins of the lo wer extremities. There is normal flow, compressibility, vascular waveforms.
== END | disposition home or self-care (01) ==
LOC: RADUSWWP 13:41
PROVIDERS: ATTEND Family Medicine
DX: R22.41 Localized swelling, mass and lump, right lower limb (principal)

== ENCOUNTER → 2024-10-18 | Outpatient (CLI) | payer MEDICARE ==
--- NOTE | 2024-10-18 11:01 | MM ---
Reason for Exam: Screening (asymptomatic). Last mammogram was performed 1 year(s) and 3 month(s) ago. Patient History: Menarche at age 14. First Full-Term at age 20. Right ovary removed at age 43. Hysterectomy at age 43. Postmenopausal. Other cancer, age 64. Risk Values: Scarlet 5 year model risk: 1.3%. NCI Lifetime model risk: 3.1%. Prior Study Comparison: 03/07/2021 Bilateral Screening Mammogram, [facility]. 05/25/2022 Bilateral MG 3D screening mammo w/cad, [facility]. 06/24/2023 Bilateral MG 3D screening mammo w/cad, [facility]. Tissue Density: The breasts are heterogeneously dense, which may obscure small masses. Findings: Analyzed By CAD. Right breast: There is no suspicious group of microcalcifications or new suspicious mass. Benign-appearing calcifications right breast. Left breast: There is no suspicious group of microcalcifications or new suspicious mass. Benign-appearing calcifications left breast. Overall Assessment: Benign, BI-RAD 2 Management: Screening Mammogram of both breasts in [address] [facility] will attempt to contact patient to return for supplemental views and ultrasound if indicated. Patient should continue monthly self-breast exams. A clinical breast exam by your physician is recommended on an annual basis. This exam should not preclude additional follow-up of suspicious palpable abnormalities. Note on Scarlet scores and lifetime risk: 1. A Scarlet score greater than 3% is considered moderate risk. If this is the case, consider specialist referral to assess eligibility for a risk reducing agent. 2. If overall lifetime risk for the development of breast cancer is 20% or higher, the patient may qualify for future screening with alternating mammogram and breast MRI. [facility], , 10/18/2024 10:57 AM. Electronically signed and approved by: Franck Carlisle DO
== END | disposition home or self-care (01) ==
LOC: RADMAMWWP 08:33
PROVIDERS: ATTEND Family Medicine
DX: Z12.31 Encounter for screening mammogram for malignant neoplasm of breast (principal); R92.333 Mammographic heterogeneous density, bilateral breasts; Z78.0 Asymptomatic menopausal state
CPT/HCPCS: 77063; 77067

== ENCOUNTER → 2024-12-04 | Outpatient (CLI) | payer MEDICARE ==
[2024-12-04 16:37] LABS: Chol/HDL Ratio 3.72 Ratio; LDL Cholesterol,Calculated 154.4 mg/dL (0.0-131.0)
== END | disposition home or self-care (01) ==
LOC: LABWHC1 08:36
PROVIDERS: ATTEND Internal Medicine Interventional Cardiology
DX: E78.5 Hyperlipidemia, unspecified (principal)
CPT/HCPCS: 36415; 80061